=== PATIENT | female | born 1950 | race Caucasian/White ===

== ENCOUNTER 2017-11-09 06:03 | Emergency (ER) | payer MEDICARE, SELFPAY ==
[2017-11-09 06:13] VITALS: BP 153/80; PULSE 88; RESP 18; TEMP 36.6; O2SAT 96; BMI 37.8
--- NOTE | 2017-11-09 06:21 | XR_ITS ---
XR chest 2V HISTORY: ITS.REASON: SOA/cough ORDERING PHYSICIAN: Richard Morales MD PATIENT AGE: 67 years COMPARISON: None available FINDINGS: The cardiomediastinal silhouette and pulmonary vascularity are within normal limits. The lungs are clear without infiltrates, suspicious nodules, or pleural effusions. No acute bony abnormalities. IMPRESSION: Negative chest, no acute finding
[2017-11-09 06:41] LABS: Basophils # 0.1 K/mm3 (0-0.2); Basophils % 1.2 % (0.1-2.0); Eosinophils # 0.1 K/mm3 (0.0-0.4); Eosinophils % 1.7 % (0.1-12.0); Hemoglobin 13.8 g/dL (12.2-16.2); Lymphocytes # 1.2 K/mm3 (0.7-4.5); Lymphocytes % 26.6 K/mm3 (10-50); Mean Corpuscular HGB Conc 33.6 g/dL (31.8-35.4); Mean Corpuscular Hemoglobin 31.3 pg (27.0-31.2); Mean Corpuscular Volume 93.2 fl (81-99); Mean Platelet Volume 7.6 fl (7.4-10.4); Monocytes # 0.6 K/mm3 (0.1-1.0); Monocytes % 11.8 % (1.7-9.3); Neutrophils # 2.8 K/mm3 (1.8-7.8); Neutrophils % 58.8 % (37.0-80.0); Platelet Count 117 K/mm3 (142-424); Red Blood Count 4.39 M/mm3 (4.20-5.40); Red Cell Distribution Width 13.9 % (11.5-17.5); White Blood Count 4.7 K/mm3 (4.8-10.8)
[2017-11-09 07:04] LABS: Alanine Aminotransferase 55 U/L (12-78); Albumin Level 3.5 gm/dL (3.4-5.0); Albumin/Globulin Ratio 0.8 (1.1-1.8); Alkaline Phosphatase 112 U/L (46-116); Aspartate Amino Transferase 50 U/L (15-37); Bilirubin,Total 0.6 mg/dL (0.2-1.0); Blood Urea Nitrogen 12 mg/dL (7-18); Calcium 8.7 mg/dL (8.5-10.1); Carbon Dioxide 28 mmol/L (21.0-32.0); Chloride 104 mmol/L (98-107); Creatinine Clearance Estimated 84 mL/min (0-300); Creatinine,Serum 0.98 mg/dL (0.55-1.02); Estimated Glomerular Filt Rate 56 ml/min (>60); GFR (African American) 68 ML/MIN (>60); Globulin 4.3 gm/dl (1.3-3.2); Glucose 169 mg/dL (74-106); Sodium 140 mmol/L (136-145); Total Protein,Serum 7.8 gm/dL (6.4-8.2)
--- NOTE | 2017-11-09 07:34 | HMH.EDSOB ---
ED Disposition Clinical Impression: CAP (community acquired pneumonia) Qualifiers: Laterality: right Lung location: lower lobe of lung Qualified Code(s): J18.1 - Lobar pneumonia, unspecified organism Disposition: Home, Self-Care Condition on Discharge: Good Instructions: DI for Cough -- Adult Additional Instructions: fluids and see pcp for follow up Prescriptions: Azithromycin [Zithromax 250mg tab] 250 mg PO DIRECTED #6 tab Benzonatate [Tessalon Perle 100mg Cap] 100 mg PO TID #30 cap - Critical Care Critical Care Time: No Attestation: On 11/09/17, the high probability of a clinically significant, sudden or life threatening deterioration of the following system(s) required my full and direct attention, intervention and personal management. The time I documented below is in addition to time spent performing reported procedures but includes the following listed in this critical care notation. Medical Decision Making - Medical Records Medical records reviewed: Yes: I reviewed the patient's medical records. Vital Signs: 11/09/17 06:13 11/09/17 07:45 Temperature 97.9 F Temperature Source Oral Pulse Rate 87 Pulse Rate [Right Radial] 88 Respiratory Rate 18 Blood Pressure [Right Arm] 153/80 Blood Pressure Mean [Right Arm] 104 Blood Pressure Source [Right Arm] Automatic Cuff Blood Pressure Position [Right Arm] Sitting 02 Sat by Pulse Oximetry 96 Oxygen Delivery Method Room Air - Lab Data Lab results reviewed: Yes: I reviewed the patient's lab results. Lab Results 11/09/17 06:25: WBC 4.7 L, RBC 4.39, Hgb 13.8, Hct 41.0, MCV 93.2, MCH 31.3 H, MCHC 33.6, RDW 13.9, Plt Count 117 L, MPV 7.6, Neut % (Auto) 58.8, Lymph % (Auto) 26.6, Long % (Auto) 11.8 H, Eos % (Auto) 1.7, Baso % (Auto) 1.2, Neut # (Auto) 2.8, Lymph # (Auto) 1.2, Long # (Auto) 0.6, Eos # (Auto) 0.1, Baso # (Auto) 0.1 11/09/17 06:25: Sodium 140, Potassium 4.0, Chloride 104, Carbon Dioxide 28, Anion Gap 12.0, BUN 12, Creatinine 0.98, Estimated Creat Clear 84, Estimated GFR 56 L, Est GFR ( Amer) 68, Glucose 169 H, Calcium 8.7, Total Bilirubin 0.6, AST 50 H, ALT 55, Alkaline Phosphatase 112, Total Protein 7.8, Albumin 3.5, Globulin 4.3 H, Albumin/Globulin Ratio 0.8 L 11/09/17 06:25: Influenza Type A Ag Negative, Influenza Type B Ag Negative Result diagrams: 11/09/17 06:25 11/09/17 06:25 Orders (Tests/Meds): ED MEDICATIONS Generic Name Dose Route Start Last Admin Trade Name Freq PRN Reason Stop Dose Admin Albuterol Sulfate 2 puffs 11/09/17 07:39 11/09/17 07:44 Proventil-Hfa 90mcg/Puff Inhaler 12/09/17 07:38 2 puffs Q6HP PRN Administration Shortness Of Breath Discontinued Medications Generic Name Dose Route Start Last Admin Trade Name Freq PRN Reason Stop Dose Admin Albuterol Sulfate 2.5 mg 11/09/17 07:39 11/09/17 07:44 Albuterol 0.083% 2.5mg/3ml Neb IH 11/09/17 07:40 2.5 mg ONCE ONE Administration Miscellaneous 1 unit 11/09/17 07:39 11/09/17 07:44 Aerochamber/Optihaler 11/09/17 07:40 1 unit ONCE ONE Administration ORDERS Category Date Time Status Chest XR 2 view (NOT portable) [XR chest 2V] Stat Exams 11/09/17 06:21 Taken - Radiology Data #1 Image(s): Chest Image Reviewed: Yes I reviewed the patient's radiology image Preliminary Findings: Abnormal - Ricardo Inquiry Pt receiving controlled substance: No Resp/SOB HPI - General Chief Complaint: Nausea/Vomiting/Diarrhea Stated Complaint: Congestion,Aching,Headache Time Seen by Provider: 11/09/17 07:34 Mode of Arrival: Ambulatory Source of Information: Patient, Medical Record Limitations: No Limitations Description of Symptoms (Recalled from ER Triage Doc. by RN): Pt. reports she started running a fever yesterday and it progressed to headache, nausea, and diarrhea - History of Present Illness over the last 2 days with prod cough and does not feel well MD Complaint: shortness of breath,
--- NOTE | 2017-11-09 07:37 | ED_ITS ---
ED Disposition Clinical Impression: CAP (community acquired pneumonia) Qualifiers: Laterality: right Lung location: lower lobe of lung Qualified Code(s): J18.1 - Lobar pneumonia, unspecified organism Disposition: Home, Self-Care Condition on Discharge: Good Instructions: DI for Cough -- Adult Additional Instructions: fluids and see pcp for follow up Prescriptions: Azithromycin [Zithromax 250mg tab] 250 mg PO DIRECTED #6 tab Benzonatate [Tessalon Perle 100mg Cap] 100 mg PO TID #30 cap - Critical Care Critical Care Time: No Attestation: On 11/09/17, the high probability of a clinically significant, sudden or life threatening deterioration of the following system(s) required my full and direct attention, intervention and personal management. The time I documented below is in addition to time spent performing reported procedures but includes the following listed in this critical care notation. Medical Decision Making - Medical Records Medical records reviewed: Yes: I reviewed the patient's medical records. Vital Signs: 11/09/17 06:13 11/09/17 07:45 Temperature 97.9 F Temperature Source Oral Pulse Rate 87 Pulse Rate [Right Radial] 88 Respiratory Rate 18 Blood Pressure [Right Arm] 153/80 Blood Pressure Mean [Right Arm] 104 Blood Pressure Source [Right Arm] Automatic Cuff Blood Pressure Position [Right Arm] Sitting 02 Sat by Pulse Oximetry 96 Oxygen Delivery Method Room Air - Lab Data Lab results reviewed: Yes: I reviewed the patient's lab results. Lab Results 11/09/17 06:25: WBC 4.7 L, RBC 4.39, Hgb 13.8, Hct 41.0, MCV 93.2, MCH 31.3 H, MCHC 33.6, RDW 13.9, Plt Count 117 L, MPV 7.6, Neut % (Auto) 58.8, Lymph % (Auto ) 26.6, [place] % (Auto) 11.8 H, Eos % (Auto) 1.7, Baso % (Auto) 1.2, Neut # (Auto ) 2.8, Lymph # (Auto) 1.2, [place] # (Auto) 0.6, Eos # (Auto) 0.1, Baso # (Auto) 0.1 11/09/17 06:25: Sodium 140, Potassium 4.0, Chloride 104, Carbon Dioxide 28, Anion Gap 12.0, BUN 12, Creatinine 0.98, Estimated Creat Clear 84, Estimated GFR 56 L, Est GFR ( Amer) 68, Glucose 169 H, Calcium 8.7, Total Bilirubin 0.6, AST 50 H, ALT 55, Alkaline Phosphatase 112, Total Protein 7.8, Albumin 3.5, Globulin 4.3 H, Albumin/Globulin Ratio 0.8 L 11/09/17 06:25: Influenza Type A Ag Negative, Influenza Type B Ag Negative Result diagrams: 11/09/17 06:25 11/09/17 06:25 Orders (Tests/Meds): ED MEDICATIONS Generic Name Dose Route Start Last Admin Trade Name Freq PRN Reason Stop Dose Admin Albuterol Sulfate 2 puffs 11/09/17 07:39 11/09/17 07:44 Proventil-Hfa 90mcg/Puff Inhaler 12/09/17 07:38 2 puffs Q6HP PRN Administration Shortness Of Breath Discontinued Medications Generic Name Dose Route Start Last Admin Trade Name Freq PRN Reason Stop Dose Admin Albuterol Sulfate 2.5 mg 11/09/17 07:39 11/09/17 07:44 Albuterol 0.083% 2.5mg/3ml Neb IH 11/09/17 07:40 2.5 mg ONCE ONE Administration Miscellaneous 1 unit 11/09/17 07:39 11/09/17 07:44 Aerochamber/Optihaler 11/09/17 07:40 1 unit ONCE ONE Administration ORDERS Category Date Time Status Chest XR 2 view (NOT portable) [XR chest 2V] Stat Exams 11/09/17 06:21 Taken - Radiology Data #1 Image(s): Chest Image Reviewed: Yes I reviewed the patient's
[2017-11-09 07:45] VITALS: PULSE 84; PULSE 87
[2017-11-09 08:18] VITALS: BP 125/75; PULSE 85; RESP 18; TEMP 36.7; O2SAT 98
== END 2017-11-09 08:17 | disposition home or self-care (01) ==
PROVIDERS: Emergency Provider Emergency Medicine
DX: J18.1 Lobar pneumonia, unspecified organism (principal); F17.210 Nicotine dependence, cigarettes, uncomplicated
CPT/HCPCS: 71046; 80053; 85025; 87275; 87276; 96365; 96374; 99282

== ENCOUNTER 2019-08-18 11:15 | Inpatient (IN) ==
[2019-08-18 12:05] LABS: Basophils # 0.1 K/mm3 (0-0.2); Basophils % 0.3 % (0.1-2.0); Eosinophils # 0.2 K/mm3 (0.0-0.4); Hematocrit 44.9 % (37.0-47.0); Hemoglobin 15.5 g/dL (12.2-16.2); Lymphocytes # 0.6 K/mm3 (0.7-4.5); Lymphocytes % 3.4 % (10-50); Mean Corpuscular HGB Conc 34.5 g/dL (31.8-35.4); Mean Corpuscular Volume 94.4 fl (81-99); Mean Platelet Volume 7.8 fl (7.4-10.4); Monocytes # 0.7 K/mm3 (0.1-1.0); Monocytes % 3.9 % (1.7-9.3); Neutrophils # 17.4 K/mm3 (1.8-7.8); Neutrophils % 91.5 % (37.0-80.0); Platelet Count 160 K/mm3 (142-424); Red Blood Count 4.75 M/mm3 (4.20-5.40); Red Cell Distribution Width 14.4 % (11.5-17.5)
[2019-08-18 12:24] LABS: Albumin Level 3.5 gm/dL (3.4-5.0); Albumin/Globulin Ratio 0.8 (1.1-1.8); Anion Gap 10.1 mEq/L (5-15); Calcium 8.9 mg/dL (8.5-10.1); Globulin 4.4 gm/dl (1.3-3.2); Total Protein,Serum 7.9 gm/dL (6.4-8.2)
[2019-08-18 12:25] LABS: Lymphocytes % 3 % (10-50); Monocytes % 8 % (2-9); Neutrophils % 89 % (42-76); RBC Morphology Normal; Total Cells Counted 100
--- NOTE | 2019-08-18 12:57 | Emergency Department Note ---
ED Disposition Clinical Impression: Flank pain, acute, Obesity (BMI 30-39.9) Hematuria Qualifiers: Hematuria type: unspecified type Qualified Code(s): R31.9 - Hematuria, unspecified Leukocytosis Qualifiers: Leukocytosis type: unspecified Qualified Code(s): D72.829 - Elevated white blood cell count, unspecified Diabetes Qualifiers: Diabetes mellitus type: type 2 Diabetes mellitus fdc insulin use: unspecified fdc insulin use status Diabetes mellitus complication status: with other specified complication Qualified Code(s): E11.69 - Type 2 diabetes m ellitus with other specified complication Disposition: Admitted as Observation Condition on Discharge: Good Referrals: Stefany Davila [Primary Care Provider] - - Critical Care Critical Care Time: No Attestation: On 08/18/19, the high probability of a clinically significant, sudden or life threatening deterioration of the following system(s) required my full and direct attention, intervention and personal management. The time I documented below is in addition to time spent performing reported procedures but includes the following listed in this critical care notation. Medical Decision Making - Medical Records Medical records reviewed: Yes: I reviewed the patient's medical records. - Ricardo Inquiry Pt receiving controlled substance: No Vital Signs: 08/18/19 11:26 08/18/19 12:16 08/18/19 13:00 Temperature 97.6 F Temperature Source Oral Pulse Rate [Right] 78 85 85 Respiratory Rate 20 19 15 Blood Pressure [Right Arm] 158/101 H 149/89 H 138/75 Blood Pressure Mean [Right Arm] 120 109 96 02 Sat by Pulse Oximetry 96 97 98 Oxygen Delivery Method Room Air 08/18/19 14:00 Temperature Temperature Source Pulse Rate [Right] 85 Respiratory Rate 15 Blood Pressure [Right Arm] 138/45 L Blood Pressure Mean [Right Arm] 76 02 Sat by Pulse Oximetry 98 Oxygen Delivery Method Room Air - Lab Data Lab results reviewed: Yes: I reviewed the patient's lab results. Lab Results 08/18/19 11:56: WBC 19.0 H, RBC 4.75, Hgb 15.5, Hct 44.9, MCV 94.4, MCH 32.5 H, MCHC 34.5, RDW 14.4, Plt Count 160, MPV 7.8, Neut % (Auto) 91.5 H, Lymph % (Auto) 3.4 L, [place] % (Auto) 3.9, Eos % (Auto) 1.0, Baso % (Auto) 0.3, Neut # (Auto) 17.4 H, Lymph # (Auto) 0.6 L, [place] # (Auto) 0.7, Eos # (Auto) 0.2, Baso # (Auto) 0.1, Total Counted 100, Neutrophils % (Manual) 89 H, Lymphocytes % (Manual) 3 L, Monocytes % (Manual) 8, Platelet Estimate Normal, RBC Morphology Normal 08/18/19 11:56: Sodium 135 L, Potassium 4.1, Chloride 102, Carbon Dioxide 27, Anion Gap 10.1, BUN 12, Creatinine 1.09 H, Estimated Creat Clear 74, Estimated GFR 49 L, Est GFR ( Amer) 60, Glucose 248 H, Calcium 8.9, Total Bilirubin 1.0, AST 33, ALT 44, Alkaline Phosphatase 167 H, Total Protein 7.9, Albumin 3.5, Globulin 4.4 H, Albumin/Globulin Ratio 0.8 L, Amylase 33, Lipase 118 08/18/19 12:55: Urine Color Yellow, Urine Appearance Clear, Urine pH 6.5, Ur Specific [place] 1.025, Urine Protein 2+, Urine Glucose (UA) 3+, Urine Ketones Negative, Urine Blood 3+, Urine Nitrate Negative, Urine Bilirubin Negative, Urine Urobilinogen 1.0, Ur Leukocyte Esterase Negative, Urine RBC 20-50, Urine WBC 3-5, Ur Squamous Epith Cells Occasional, Amorphous Sediment 1+, Urine Bacteria None 08/18/19 13:00: Lactate 2.2 H Result diagrams: 08/18/19 11:56 08/18/19 11:56 Orders (Tests/Meds): ED MEDICATIONS Generic Name Dose Route Start Last Admin Trade Name Freq PRN Reason Stop Dose Admin Ertapenem 1 gm/ Sodium 50 mls @ 100 mls/hr 08/18/19 14:15 08/18/19 14:17 Chloride IV 09/01/19 14:14 100 mls/hr Q24H FILIPPO Administration Protocol Discontinued Medications Generic Name Dose Route Start Last Admin Trade Name Freq PRN Reason Stop Dose Admin Sodium Chloride 1,000 mls @ 999 mls/hr 08/18/19 12:00 08/18/19 11:57 Sod Chlor 0.9% 1000ml Bag IV 08/18/19 13:00 999 mls/hr .Q1H1M FILIPPO Administration Ketorolac Tromethamine 30 mg 08/18/19 11:51 08/18/19 11:57 Toradol 30mg/Ml Vial IV 08/18/19 11:52 30 mg ONCE ONE Administration Morphine Sulfate 2 mg 08/18/19 14:23 08/18/19 14:25 Morphine 4mg/Ml Syringe IV 08/18/19 14:24 2 mg ONCE ONE Administration Ondansetron HCl 4 mg 08/18/19 11:51 08/18/19 11:57 Zofran 4mg/2ml Vial IV 08/18/19 11:52 4 mg ONCE ONE Administration Ondansetron HCl 4 mg 08/18/19 14:23 08/18/19 14:24 Zofran 4mg/2ml Vial IV 08/18/19 14:24 4 mg ONCE ONE Administration ORDERS Category Date Time Status Diarrhea 23 Panel, PCR Stat Lab 08/18/19 11:43 Ordered Blood Culture Stat Micro 08/18/19 13:00 Received - CT Data CT Scan: Abdomen, Pelvis Time Received: 14:[address] Reviewed: Yes: I have viewed the radiologist's interpretation Preliminary Findings: Abnormal (see report ) - Physician Consults Physician Consulted: kavin Reason -: Admission Nausea/Vomiting/Diarrhea HPI - General Chief complaint: Nausea/Vomiting/Diarrhea Stated complaint: lt side pain, vomiting Time Seen by Provider: 08/18/19 12:55 Mode of Arrival: Wheelchair Source of Information: Patient, Relative, Medical Record Limitations: No Limitations Description of Symptoms (Recalled from ER Triage Doc. by RN): Patient complains of nausea, vomiting, diarrhea and left lower back pain since bedtime last night. - History of Present Illness HPI Narrative: wf with acute lt flank pain with nausea over the last day - no hx of kidney st one and no hx of diverticulitis and no rash and no fever - has vomiting MD complaint: nausea, vomiting, abdominal pain Onset (ago): day(s) Associated Abdominal Pain: Yes Location of pain: LLQ, flank Severity: moderate Associated symptoms: denies other symptoms - Related Data Home Medications Medication Instructions Recorded Confirmed Escitalopram Oxalate [Lexapro] 10 mg PO DAILY 11/09/17 08/18/19 Lisinopril [Lisinopril 10mg Tab] 1 tab PO DAILY 11/09/17 08/18/19 Metformin HCl 1 tab PO DAILY 11/09/17 08/18/19 Allergies Allergy/AdvReac Type Severity Reaction Status Date / Time No Known Allergies Allergy Verified 08/18/19 11:45 [facility] History - Hepatitis A Screen Drug use history?: No High risk sexual behaviors?: No History of sexually transmitted infection?: No Currently employed?: No Childcare worker?: No Do you have indoor plumbing?: Yes Do you have electricity?: Yes Attestation statement:: This patient has been screened for Hepatitis A risk factors. I have reviewed the patient's past medical history: Yes Medical History: Reports:: Diabetes Mellitus Type 2 Other Medical History: Reports: Thyroid Disease Other Surgeries: Yes: Other (thyroid and hysterectomy) - Social History Smoking Status: Current every day smoker Tobacco Type: cigarettes # Packs/Day (cigarettes): 1 Alcohol Intake: never Occupational Status: disabled ROS Obtained: Yes All systems reviewed & no additional complaints - Constitutional Constitutional: Denies fever(s) - Eyes Eyes: Denies change in vision - ENT Ears, Nose, Mouth, and Throat: Denies sore throat - Cardiovascular Cardiovascular: Denies chest pain - Respiratory Respiratory: No cough - Gastrointestinal Gastrointestingal: Reports: abdominal pain, diarrhea, nausea, vomiting. Denies: as per HPI, bright red blood in stools, black, tarry stools - Genitourinary Female Genitourinary: Denies hematuria - Musculoskeletal Musculoskeletal: Denies joint pain - Integumentary/Breasts Skin/Breast: Denies rash - Neurologic Neurologic: Denies focal weakness, Denies seizure-like activity Physical Exam - General General appearance: alert - Head Head exam: normocephalic - Eye Eye exam: Present: PERRL, EOMI - ENT ENT exam: Present: mucous membranes moist - Neck Neck exam: Absent: trachea midline - Respiratory Respiratory exam: Present: normal lung sounds bilaterally. Absent: respiratory distress - Cardiovascular Cardiovascular exam: Present: regular rate, systolic murmur, +S4 - Abdominal Exam Abdominal exam: Present: soft, tenderness Abdominal tenderness: Present: LLQ, moderate - Extremities Exam Extremities exam: Present: full ROM. Absent: calf tenderness - Neurological Exam Neurological exam: Present: alert, oriented X3, CN II-XII intact - Psychiatric Psychiatric exam: Present: normal affect - Skin Skin exam: Absent: rash
[2019-08-18 12:59] LABS: Microscopic, Urine URINE MICROSCOPIC (MICROSCOPIC)
[2019-08-18 13:02] LABS: Appearance,Urine CLEAR (Clear); Bilirubin,Urine Negative (Negative); Blood, Urine 3+ (Negative); Color,Urine YELLOW (Yellow); Glucose,Urine (UA) 3+ (Negative); Ketones,Urine Negative (Negative); Leukocyte Esterase,Urine Negative (Negative); PH,Urine 6.5 (5.0-8.5); Protein,Urine 2+ (Negative); Specific Gravity, Urine 1.025 (1.005-1.030)
[2019-08-18 13:11] LABS: Amorphous Sediment,Urine 1+ /lpf; RBC,Urine 20-50 #/hpf (0-3); Squamous Epithelial Cell,Urine Occasional #/hpf (0-5)
--- NOTE | 2019-08-18 17:26 | History & Physical Report ---
*Admission Date: 08/18/19 *Chief complaint: LLQ abdominal pain, diarrhea *History of present illness: Ms. Quiroz is a 69-year-old patient of Dr. Stefany Davila in [place] who began having left lower back and left lower quadrant pain last night. She also had vomiting and diarrhea. This continued throughout the night and her vomiting and diarrhea subsided around 11 AM today. The pain has not subsided. She states she presented to the emergency room for further evaluation and was found to have a left-sided kidney stone. Her white blood cell count was elevated at 19 and her lactic acid was elevated. She was therefore admitted for IV fluids, antibiotics, and a repeat CT scan with contrast. Dr. Main was also consulted for the kidney stone and will see the patient tomorrow. [facility] History I have reviewed the patient's past medical history: Yes Medical History: Reports:: Anxiety, Depression, Diabetes Mellitus Type 2, Hypertension *Have you ever received a pneumonia vaccine?: No *Have you received a flu vaccine this season?: No Other Medical History: Reports: Hypothyroidism, Thyroid Disease Laterality Cases: Bilateral: Carpal Tunnel Release Other Surgeries: Yes: Cholecystectomy, Hysterectomy-Partial, Thyroidectomy, Other (right rotator cuff repair) - *Social History Smoking Status: Current every day smoker Tobacco Type: cigarettes # Packs/Day (cigarettes): 1 Alcohol Intake: never *Occupational Status:: disabled *Travel in the last 8 weeks: None Family Hx:: Cancer, Diabetes, Hypertension, Stroke Review of Systems - Constitutional Reports chills, Reports fever(s), Reports weakness - Eyes Denies blurry vision, Denies double vision - ENT Reports nasal congestion, Denies sore throat - *Cardiovascular Denies chest pain, Denies shortness of breath - *Respiratory Denies chest congestion, Denies cough - *Gastrointestinal Reports abdominal pain (LLQ), Reports loose stools, Reports nausea, Reports vomiting, Denies vomiting blood, Denies bright, red blood in stools - *Genitourinary Denies difficulty urinating, Denies painful urination - *Musculoskeletal Reports joint pain (left flank pain) - *Neurologic Reports headache(s), Reports weakness, Denies localized weakness, Denies seizure-like activity, Denies dizziness Meds Home Medications Medication Instructions Recorded Confirmed Type Escitalopram Oxalate [Lexapro] 10 mg PO DAILY 11/09/17 08/18/19 History Lisinopril [Lisinopril 10mg Tab] 1 tab PO DAILY 11/09/17 08/18/19 History Metformin HCl 1 tab PO DAILY 11/09/17 08/18/19 History Allergies Allergy/AdvReac Type Severity Reaction Status Date / Time No Known Allergies Allergy Verified 08/18/19 11:45 Exam Vital signs and Labs for Last 24 Hours: Temp Pulse Resp BP Pulse Ox 98.6 F 84 17 126/85 98 08/18/19 16:36 08/18/19 16:36 08/18/19 16:36 08/18/19 16:36 08/18/19 14:50 Laboratory Results - last 24 hr 08/18/19 11:56: WBC 19.0 H, RBC 4.75, Hgb 15.5, Hct 44.9, MCV 94.4, MCH 32.5 H, MCHC 34.5, RDW 14.4, Plt Count 160, MPV 7.8, Neut % (Auto) 91.5 H, Lymph % (Auto) 3.4 L, [place] % (Auto) 3.9, Eos % (Auto) 1.0, Baso % (Auto) 0.3, Neut # (Auto) 17.4 H, Lymph # (Auto) 0.6 L, [place] # (Auto) 0.7, Eos # (Auto) 0.2, Baso # (Auto) 0.1, Total Counted 100, Neutrophils % (Manual) 89 H, Lymphocytes % (Manual) 3 L, Monocytes % (Manual) 8, Platelet Estimate Normal, RBC Morphology Normal 08/18/19 11:56: Sodium 135 L, Potassium 4.1, Chloride 102, Carbon Dioxide 27, Anion Gap 10.1, BUN 12, Creatinine 1.09 H, Estimated Creat Clear 74, Estimated GFR 49 L, Est GFR ( Amer) 60, Glucose 248 H, Calcium 8.9, Total Bilirubin 1.0, AST 33, ALT 44, Alkaline Phosphatase 167 H, Total Protein 7.9, Albumin 3.5, Globulin 4.4 H, Albumin/Globulin Ratio 0.8 L, Amylase 33, Lipase 118 08/18/19 12:55: Urine Color Yellow, Urine Appearance Clear, Urine pH 6.5, Ur Specific [place] 1.025, Urine Protein 2+, Urine Glucose (UA) 3+, Urine Ketones Negative, Urine Blood 3+, Urine Nitrate Negative, Urine Bilirubin Negative, Urine Urobilinogen 1.0, Ur Leukocyte Esterase Negative, Urine RBC 20-50, Urine WBC 3-5, Ur Squamous Epith Cells Occasional, Amorphous Sediment 1+, Urine Bacteria None 08/18/19 13:00: Lactate 2.2 H I & O for Last 24 hours: Intake & Output 08/16/19 08/17/19 08/18/19 08/19/19 11:59 11:59 11:59 11:59 Intake Total 1999 Balance 1999 Weight 218 lb - Constitutional no acute distress - *Routine HEENT Exam Head: Present: normocephalic Eye: Present: EOMI, PERRL ENT: Present: mucous membranes dry - *Routine Neck Exam Present: supple. Absent: lymphadenopathy - *Routine Respiratory Exam Present: CTA bilaterally - *Routine Cardiovascular Exam Present: RRR - *Routine Abdominal Exam Present: soft, normoactive bowel sounds, tenderness (LLQ) - *Routine Extremities Exam Absent: cyanosis, clubbing, edema - *Routine Skin Exam Present: warm. Absent: rash - *Routine Neurological Exam Present: alert, oriented X3 H&P: Result - Impressions CT abd 1. There is moderate stranding of the left perinephric renal fat with mild left hydronephrosis and proximal hydroureter along with some stranding of the fat along the pancreatic tail. A soft tissue density is present in the left pelvic region the adjacent to the left ureter. This may represent the left ovary. There could also be a small stone at this area at [address] abdomen and pelvis with IV contrast with delayed imaging to better delineate the path of the left ureter and possible etiology of obstruction. Pancreatitis is also a consideration. 2. Multiple nodular opacities are present in the left aspect of the retroperitoneum at the renal hilar area and may be due to combination of varices and small lymph nodes which would also be better evaluated with IV contrast. 3. Mild irregularity of the surface of the liver suggesting cirrhosis. 4. Left adrenal adenoma Assessment and Plan (1) Flank pain, acute Current visit: Yes Status: Acute Category: Medical Code(s): R10.9 - Unspecified abdominal pain (2) Leukocytosis Current visit: Yes Status: Acute Qualifiers: Leukocytosis type: unspecified Qualified Code(s): D72.829 - Elevated white blood cell count, unspecified Category: Medical Code(s): D72.829 - Elevated white blood cell count, unspecified (3) Abdominal pain, left lower quadrant Current visit: Yes Status: Acute Category: Medical Code(s): R10.32 - Left lower quadrant pain (4) Diabetes Current visit: Yes Status: Chronic Qualifiers: Diabetes mellitus type: type 2 Diabetes mellitus penitentiary insulin use: unspecified oil heaterman insulin use status Diabetes mellitus complication status: with other specified complication Qualified Code(s): E11.69 - Type 2 diabetes mellitus with other specified complication Category: Medical Code(s): E11.9 - Type 2 diabetes mellitus without complications (5) Hypertension Current visit: Yes Status: Chronic Category: Medical Code(s): I10 - Essential (primary) hypertension - Assessment and plan all Dx Assessment and Plan for all problems:: Patient has been admitted and started on IV fluids, IV antibiotics, and pain control. Dr. Main has been consulted. Patient just returned from her CT of the abdomen and pelvis with IV contrast. Awaiting results.
[2019-08-19 07:11] LABS: Basophils # 0.1 K/mm3 (0-0.2); Basophils % 0.4 % (0.1-2.0); Eosinophils # 0.1 K/mm3 (0.0-0.4); Eosinophils % 0.3 % (0.1-12.0); Hematocrit 36.7 % (37.0-47.0); Lymphocytes # 0.8 K/mm3 (0.7-4.5); Lymphocytes % 4.8 % (10-50); Mean Corpuscular HGB Conc 33.6 g/dL (31.8-35.4); Mean Corpuscular Volume 96.7 fl (81-99); Mean Platelet Volume 8.9 fl (7.4-10.4); Monocytes # 0.7 K/mm3 (0.1-1.0); Neutrophils # 14.9 K/mm3 (1.8-7.8); Neutrophils % 90.4 % (37.0-80.0); Platelet Count 115 K/mm3 (142-424); Red Cell Distribution Width 14.4 % (11.5-17.5); White Blood Count 16.5 K/mm3 (4.8-10.8)
[2019-08-19 07:23] LABS: Anion Gap 6.5 mEq/L (5-15); Calcium 8.2 mg/dL (8.5-10.1); Hemoglobin 12.4 g/dL (12.2-16.2)
--- NOTE | 2019-08-19 07:40 | Pharmacy Consult Notes ---
[facility] Pharmacy VTE Monitoring - Patient Demographics Admission date: 08/18/19 Report Date: 08/19/19 Time: 07:40 Allergies/Adverse Reactions: Patient Allergies No Known Allergies Allergy (Verified 08/18/19 11:45) Height: 1.63 m Weight: 104.468 kg Patient Problems: Current Active Problems History of thyroidectomy (Acute) Strabismus (Acute) Flank pain, acute (Acute) Hematuria (Acute) Obesity (BMI 30-39.9) (Acute) Leukocytosis (Acute) Diabetes (Chronic) Abdominal pain, left lower quadrant (Acute) Hypertension (Chronic) - VTE Risk Labs: VTE Related Lab Results Hgb 12.4 g/dL (12.2-16.2) D 08/19/19 06:54 Hct 36.7 % (37.0-47.0) L 08/19/19 06:54 Plt Count 115 K/mm3 (142-424) L D 08/19/19 06:54 BUN 15 mg/dL (7-18) 08/19/19 06:54 Creatinine 1.38 mg/dL (0.55-1.02) H D 08/19/19 06:54 Estimated Creat Clear 62 mL/min (50-200) 08/19/19 06:54 - Prophylaxis VTE Prophylaxis Ordered?: Yes Types of VTE Prophylaxis: TEDS Knee High Location of Applied Device: Bilateral Lower Extremeties - VTE Diagnosis Confirmed Treatment or plan recommended: Continue Current Treatment
[2019-08-19 08:27] LABS: Lymphocytes % 7 % (10-50); Monocytes % 1 % (2-9); Neutrophils % 89 % (42-76); RBC Morphology Normal; Total Cells Counted 100
--- NOTE | 2019-08-19 08:31 | Progress Note ---
Internal Medicine - PN: Subj *Date: 08/19/19 *Time: 08:29 Interval history: Patient states she is still having left flank and left-sided abdominal pain. She was able to rest last night after being given some pain medication. She has had only small sips of liquid this morning. She has had no further vomiting or diarrhea. Dr. Main has been consulted to see the patient today. Exam Vital signs and Labs for Last 24 Hours: Temp Pulse Resp BP Pulse Ox 98.9 F 94 H 18 106/60 L 94 L 08/19/19 04:00 08/19/19 04:00 08/19/19 04:00 08/19/19 04:00 08/19/19 04:00 Laboratory Results - last 24 hr 08/18/19 11:55: TSH 2.10 08/18/19 11:56: WBC 19.0 H, RBC 4.75, Hgb 15.5, Hct 44.9, MCV 94.4, MCH 32.5 H, MCHC 34.5, RDW 14.4, Plt Count 160, MPV 7.8, Neut % (Auto) 91.5 H, Lymph % (Auto) 3.4 L, [place] % (Auto) 3.9, Eos % (Auto) 1.0, Baso % (Auto) 0.3, Neut # (Auto) 17.4 H, Lymph # (Auto) 0.6 L, [place] # (Auto) 0.7, Eos # (Auto) 0.2, Baso # (Auto) 0.1, Total Counted 100, Neutrophils % (Manual) 89 H, Lymphocytes % (Manual) 3 L, Monocytes % (Manual) 8, Platelet Estimate Normal, RBC Morphology Normal 08/18/19 11:56: Sodium 135 L, Potassium 4.1, Chloride 102, Carbon Dioxide 27, Anion Gap 10.1, BUN 12, Creatinine 1.09 H, Estimated Creat Clear 74, Estimated GFR 49 L, Est GFR ( Amer) 60, Glucose 248 H, Calcium 8.9, Total Bilirubin 1.0, AST 33, ALT 44, Alkaline Phosphatase 167 H, Total Protein 7.9, Albumin 3.5, Globulin 4.4 H, Albumin/Globulin Ratio 0.8 L, Amylase 33, Lipase 118 08/18/19 12:55: Urine Color Yellow, Urine Appearance Clear, Urine pH 6.5, Ur Specific [place] 1.025, Urine Protein 2+, Urine Glucose (UA) 3+, Urine Ketones Negative, Urine Blood 3+, Urine Nitrate Negative, Urine Bilirubin Negative, Urine Urobilinogen 1.0, Ur Leukocyte Esterase Negative, Urine RBC 20-50, Urine WBC 3-5, Ur Squamous Epith Cells Occasional, Amorphous Sediment 1+, Urine Bacteria None 08/18/19 13:00: Lactate 2.2 H 08/18/19 17:51: Lactate 1.4 08/18/19 20:46: POC Glucose 143 H 08/19/19 05:59: POC Glucose 175 H 08/19/19 06:54: WBC 16.5 H, RBC 3.80 L, Hgb 12.4 D, Hct 36.7 L, MCV 96.7, MCH 32.5 H, MCHC 33.6, RDW 14.4, Plt Count 115 L D, MPV 8.9, Neut % (Auto) 90.4 H, Lymph % (Auto) 4.8 L, [place] % (Auto) 4.0, Eos % (Auto) 0.3, Baso % (Auto) 0.4, Neut # (Auto) 14.9 H, Lymph # (Auto) 0.8, [place] # (Auto) 0.7, Eos # (Auto) 0.1, Baso # (Auto) 0.1, Total Counted 100, Neutrophils % (Manual) 89 H, Band Neutrophils % 2.0, Lymphocytes % (Manual) 7 L, Monocytes % (Manual) 1 L, Metamyelocytes % 1.0, Platelet Estimate Slight decrease, RBC Morphology Normal 08/19/19 06:54: Sodium 136, Potassium 4.5, Chloride 106, Carbon Dioxide 28, Anion Gap 6.5, BUN 15, Creatinine 1.38 H D, Estimated Creat Clear 62, Estimated GFR 38 L, Est GFR ( Amer) 46 L D, Glucose 169 H D, Calcium 8.2 L, Magnesium 1.6 I & O for Last 24 hours: Intake & Output 08/16/19 08/17/19 08/18/19 08/19/19 11:59 11:59 11:59 11:59 Intake Total 4117 / 4117 Output Total 600 / 600 Balance 3517 / 3517 Weight 218 lb 230 lb 5 oz Radiology Reports for the Last 24 Hours: Abdominal CT 1. Left hydronephrosis with filling defects in the left renal pelvis and calices. Filling defect at the proximal left ureter causing mild UPJ obstruction. Tumor, blood clots, or infection is a consideration. There is moderate stranding of the left perinephric renal fat and periureteral fat consistent with underlying inflammatory/infectious change.. No ureteral calculi are evident 2. There is mild edema of the tail the pancreas with stranding of the peripancreatic fat. This could be in response to the inflammatory changes in the adjacent left kidney or could be due to pancreatitis. 3. Cirrhosis with retroperitoneal varices - Constitutional no acute distress - *Routine Respiratory Exam Present: CTA bilaterally - *Routine Cardiovascular Exam Present: RRR - *Routine Abdominal Exam Present: soft, normoactive bowel sounds, tenderness (left upper and lower quadrants) - *Routine Extremities Exam Absent: cyanosis, clubbing, edema - Routine Back/Spine/Pelvis Exam Back/Spine: Present: CVA tenderness (left) - *Routine Skin Exam Present: warm. Absent: rash - *Routine Neurological Exam Present: alert, oriented X3 Assessment and Plan (1) Flank pain, acute Current visit: Yes Status: Acute Category: Medical Code(s): R10.9 - Unspecified abdominal pain (2) Leukocytosis Current visit: Yes Status: Acute Qualifiers: Leukocytosis type: unspecified Qualified Code(s): D72.829 - Elevated white blood cell count, unspecified Category: Medical Code(s): D72.829 - Elevated white blood cell count, unspecified (3) Abdominal pain, left lower quadrant Current visit: Yes Status: Acute Category: Medical Code(s): R10.32 - Left lower quadrant pain (4) Diabetes Current visit: Yes Status: Chronic Qualifiers: Diabetes mellitus type: type 2 Diabetes mellitus superintendent container terminal insulin use: unspecified superintendent container terminal insulin use status Diabetes mellitus complication status: with other specified complication Qualified Code(s): E11.69 - Type 2 diabetes mellitus with other specified complication Category: Medical Code(s): E11.9 - Type 2 diabetes mellitus without complications (5) Hypertension Current visit: Yes Status: Chronic Category: Medical Code(s): I10 - Essential (primary) hypertension (6) Hydronephrosis, left Current visit: Yes Status: Acute Category: Medical Code(s): N13.30 - Unspecified hydronephrosis (7) Cirrhosis Current visit: Yes Status: Acute Category: Medical Code(s): K74.60 - Unspecified cirrhosis of liver - Assessment and plan all Dx Assessment and Plan for all problems:: We will continue antibiotics and pain control. Dr. Main to see the patient today.
--- NOTE | 2019-08-19 13:13 | Consult Report ---
*Admission Date: 08/18/19 *Reason for consult:: Lower quadrant pain and abnormal CT scan *History of present illness: Patient is a 69-year-old white female admitted yesterday with left lower quadrant pain. She denies any previous history of such. She also has some associated vomiting and diarrhea. CT scan had shown possible kidney stone and a CT with contrast was performed to assess further. Calcifications were noted to be outside the course of the ureter on the CT with contrast. This was noted to have some mild hydronephrosis and thought to be due to a partial UPJ obstruction. The ureter appeared normal. Her pain has improved over the last 24 hours. Her lactate was elevated at 2.2 and her white count is 19,000. Her urine culture is pending. Her urine showed 20-50 red blood cells but no ba cteria. [facility] History Medical History: Reports:: Anxiety, Depression, Diabetes Mellitus Type 2, Hypertension *Have you ever received a pneumonia vaccine?: No *Have you received a flu vaccine this season?: No Other Medical History: Reports: Hypothyroidism, Thyroid Disease Laterality Cases: Bilateral: Carpal Tunnel Release Other Surgeries: Yes: Cholecystectomy, Hysterectomy-Partial, Thyroidectomy, Other (right rotator cuff repair) - *Social History Smoking Status: Current every day smoker Tobacco Type: cigarettes # Packs/Day (cigarettes): 1 Alcohol Intake: never *Occupational Status:: disabled *Travel in the last 8 weeks: None - Psychiatric History Pschychiatric History:: Reports:: Anxiety, Depression Family Hx:: Cancer, Diabetes, Hypertension, Stroke Review of Systems - *Neurologic Reports headache(s), Reports weakness, Denies localized weakness, Denies seizure-like activity, Denies dizziness Meds Home Medications Medication Instructions Recorded Confirmed Type Escitalopram Oxalate [Lexapro] 10 mg PO DAILY 11/09/17 08/18/19 History Lisinopril [Lisinopril 10mg Tab] 10 mg PO DAILY 11/09/17 08/18/19 History Metformin HCl 500 mg PO 1700 08/18/19 08/19/19 History Naproxen 500 mg PO BIDP PRN 08/18/19 08/19/19 History Propranolol HCl 10 mg PO DAILYP PRN 08/18/19 08/18/19 History Venlafaxine HCl [Effexor Xr] 150 mg PO DAILY 08/18/19 08/19/19 History Metformin HCl [Metformin 1000mg 1,000 mg PO DAILY 08/19/19 08/19/19 History Tablets] Allergies Allergy/AdvReac Type Severity Reaction Status Date / Time No Known Allergies Allergy Verified 08/18/19 11:45 Exam Vital signs and Labs for Last 24 Hours: Temp Pulse Resp BP Pulse Ox 97.9 F 84 16 129/67 93 L 08/19/19 12:00 08/19/19 12:00 08/19/19 12:00 08/19/19 12:00 08/19/19 12:00 Laboratory Results - last 24 hr 08/18/19 11:55: TSH 2.10 08/18/19 12:55: Urine RBC 20-50, Urine WBC 3-5, Ur Squamous Epith Cells Occasional, Amorphous Sediment 1+, Urine Bacteria None 08/18/19 13:00: Lactate 2.2 H 08/18/19 17:51: Lactate 1.4 08/18/19 20:46: POC Glucose 143 H 08/19/19 05:59: POC Glucose 175 H 08/19/19 06:54: WBC 16.5 H, RBC 3.80 L, Hgb 12.4 D, Hct 36.7 L, MCV 96.7, MCH 32.5 H, MCHC 33.6, RDW 14.4, Plt Count 115 L D, MPV 8.9, Neut % (Auto) 90.4 H, Lymph % (Auto) 4.8 L, [place] % (Auto) 4.0, Eos % (Auto) 0.3, Baso % (Auto) 0.4, Neut # (Auto) 14.9 H, Lymph # (Auto) 0.8, [place] # (Auto) 0.7, Eos # (Auto) 0.1, Baso # (Auto) 0.1, Total Counted 100, Neutrophils % (Manual) 89 H, Band Neutrophils % 2.0, Lymphocytes % (Manual) 7 L, Monocytes % (Manual) 1 L, Metamyelocytes % 1.0, Platelet Estimate Slight decrease, RBC Morphology Normal 08/19/19 06:54: Sodium 136, Potassium 4.5, Chloride 106, Carbon Dioxide 28, Anion Gap 6.5, BUN 15, Creatinine 1.38 H D, Estimated Creat Clear 62, Estimated GFR 38 L, Est GFR ( Amer) 46 L D, Glucose 169 H D, Calcium 8.2 L, Magnesium 1.6 I & O for Last 24 hours: Intake & Output 08/16/19 08/17/19 08/18/19 08/19/19 23:59 23:59 23:59 23:59 Intake Total 1999 Output Total 600 / 600 Balance 1400 / 2431 2116 Weight 103.7 kg 104.468 kg Narrative: Well-nourished white female in no apparent distress Pupils equal round reactive to light Abdomen soft nontender nondistended Alert and oriented x3 Internal Medicine - CN: Reslt - Labs CBC & Chem 7: 08/19/19 06:54 08/19/19 06:54 Labs: Short CBC 08/19/19 Range/Units 06:54 WBC 16.5 H (4.8-10.8) K/mm3 Hgb 12.4 D (12.2-16.2) g/dL Hct 36.7 L (37.0-47.0) % Plt Count 115 L D (142-424) K/mm3 [facility] 08/19/19 06:54 Sodium 136 Potassium 4.5 Chloride 106 Carbon Dioxide 28 BUN 15 Creatinine 1.38 H D Glucose 169 H D Calcium 8.2 L Assessment and Plan (1) Flank pain, acute Current visit: Yes Status: Acute Category: Medical Code(s): R10.9 - Unspecified abdominal pain (2) Leukocytosis Current visit: Yes Status: Acute Qualifiers: Leukocytosis type: unspecified Qualified Code(s): D72.829 - Elevated white blood cell count, unspecified Category: Medical Code(s): D72.829 - Elevated white blood cell count, unspecified (3) Abdominal pain, left lower quadrant Current visit: Yes Status: Acute Category: Medical Code(s): R10.32 - Left lower quadrant pain (4) Diabetes Current visit: Yes Status: Chronic Qualifiers: Diabetes mellitus type: type 2 Diabetes mellitus retirement insulin use: unspecified medical terminologist insulin use status Diabetes mellitus complication status: with other specified complication Qualified Code(s): E11.69 - Type 2 diabetes mellitus with other specified complication Category: Medical Code(s): E11.9 - Type 2 diabetes mellitus without com plications (5) Hypertension Current visit: Yes Status: Chronic Category: Medical Code(s): I10 - Essential (primary) hypertension (6) Hydronephrosis, left Current visit: Yes Status: Acute Category: Medical Code(s): N13.30 - Unspecified hydronephrosis (7) Cirrhosis Current visit: Yes Status: Acute Category: Medical Code(s): K74.60 - Unspecified cirrhosis of liver - Assessment and plan all Dx Assessment and Plan for all problems:: Left lower quadrant pain with associated nausea vomiting. CT scan was reviewed and there is signs of some inflammation along the upper tract on the left side. I suspect patient has some pyelonephritis. Her white count is improving with antibiotics and would suggest consider continued conservative management. We will plan to see her back in the office in 2 weeks and reevaluating. If she worsens today or over the weekend can transfer to [place] for possible stent placement if necessary. Would expect her to continue to clinically improve with antibiotics.
--- NOTE | 2019-08-20 08:18 | Progress Note ---
Internal Medicine - PN: Subj *Date: 08/20/19 *Time: 08:15 Interval history: Patient states she is feeling better this morning. Her pain has improved slightly on the left side. She has been running to the bathroom to urinate all night. She denies any vomiting or diarrhea. Exam Vital signs and Labs for Last 24 Hours: Temp Pulse Resp BP Pulse Ox 98.8 F 72 22 145/85 H 93 L 08/20/19 04:00 08/20/19 04:00 08/20/19 04:00 08/20/19 04:00 08/20/19 04:00 Laboratory Results - last 24 hr 08/19/19 06:54: Total Counted 100, Neutrophils % (Manual) 89 H, Band Neutrophils % 2.0, Lymphocytes % (Manual) 7 L, Monocytes % (Manual) 1 L, Metamyelocytes % 1.0, Platelet Estimate Slight decrease, RBC Morphology Normal 08/19/19 11:41: POC Glucose 187 H 08/19/19 17:01: POC Glucose 171 H 08/19/19 20:22: POC Glucose 144 H 08/20/19 05:48: POC Glucose 158 H I & O for Last 24 hours: Intake & Output 08/17/19 08/18/19 08/19/19 08/20/19 11:59 11:59 11:59 11:59 Intake Total 4117 / 4117 3450 / 3450 Output Total 600 / 600 2150 / 2150 Balance 3517 / 3517 1300 / 1300 Weight 218 lb 230 lb 5 oz 230 lb 1 oz - Constitutional no acute distress - *Routine Respiratory Exam Present: CTA bilaterally - *Routine Cardiovascular Exam Present: RRR - *Routine Abdominal Exam Present: soft, normoactive bowel sounds, tenderness (LUQ and LLQ) - *Routine Extremities Exam Present: edema (trace LE edema bilaterally). Absent: cyanosis, clubbing - *Routine Skin Exam Present: warm. Absent: rash - *Routine Neurological Exam Present: alert, oriented X3 Assessment and Plan (1) Flank pain, acute Current visit: Yes Status: Acute Category: Medical Code(s): R10.9 - Unspecified abdominal pain (2) Leukocytosis Current visit: Yes Status: Acute Qualifiers: Leukocytosis type: unspecified Qualified Code(s): D72.829 - Elevated white blood cell count, unspecified Category: Medical Code(s): D72.829 - Elevated white blood cell count, unspecified (3) Abdominal pain, left lower quadrant Current visit: Yes Status: Acute Category: Medical Code(s): R10.32 - Left lower quadrant pain (4) Diabetes Current visit: Yes Status: Chronic Qualifiers: Diabetes mellitus type: type 2 Diabetes mellitus 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 insulin use: unspecified residential insulin use status Diabetes mellitus complication status: with other specified complication Qualified Code(s): E11.69 - Type 2 diabetes mellitus with other specified complication Category: Medical Code(s): E11.9 - Type 2 diabetes mellitus without complications (5) Hypertension Current visit: Yes Status: Chronic Category: Medical Code(s): I10 - Essential (primary) hypertension (6) Hydronephrosis, left Current visit: Yes Status: Acute Category: Medical Code(s): N13.30 - Unspecified hydronephrosis (7) Cirrhosis Current visit: Yes Status: Acute Category: Medical Code(s): K74.60 - Unspecified cirrhosis of liver (8) Pyelonephritis Current visit: Yes Status: Acute Category: Medical Code(s): N12 - Tubulo- interstitial nephritis, not specified as acute or chronic - Assessment and plan all Dx Assessment and Plan for all problems:: Dr. Main saw the patient yesterday and feels she has a pyelonephritis. He recommends conservative management with IV antibiotics. He wanted to wait on the urine culture results. I have called regarding these and apparently the urine was not cultured. They also no longer have the patient's urine. Will order a urine culture today.
[2019-08-20 13:00] LABS: Basophils % 0.6 % (0.1-2.0); Eosinophils # 0.1 K/mm3 (0.0-0.4); Eosinophils % 0.9 % (0.1-12.0); Hemoglobin 12.2 g/dL (12.2-16.2); Lymphocytes # 0.7 K/mm3 (0.7-4.5); Lymphocytes % 12.4 % (10-50); Mean Corpuscular HGB Conc 34.8 g/dL (31.8-35.4); Mean Corpuscular Volume 93.4 fl (81-99); Mean Platelet Volume 9.2 fl (7.4-10.4); Monocytes # 0.4 K/mm3 (0.1-1.0); Monocytes % 6.3 % (1.7-9.3); Neutrophils # 4.5 K/mm3 (1.8-7.8); Neutrophils % 79.8 % (37.0-80.0); Platelet Count 94 K/mm3 (142-424); Red Blood Count 3.75 M/mm3 (4.20-5.40); Red Cell Distribution Width 14.6 % (11.5-17.5); White Blood Count 5.6 K/mm3 (4.8-10.8)
--- NOTE | 2019-08-20 16:05 | Discharge Summary ---
General - General Admission date:: 08/18/19 Discharge date: 08/20/19 HPI HPI: Ms. Quiroz is a 69-year-old patient of Dr. Stefany Davila in [place] who began having left lower back and left lower quadrant pain last night. She also had vomiting and diarrhea. This continued throughout the night and her vomiting and diarrhea subsided around 11 AM today. The pain has not subsided. She states she presented to the emergency room for further evaluation and was found to have a left-sided kidney stone. Her white blood cell count was elevated at 19 and her lactic acid was elevated. She was therefore admitted for IV fluids, antibiotics, and a repeat CT scan with contrast. Dr. Main was also consulted for the kidney stone and will see the patient tomorrow. Hospital Course Hospital Course: The patient's repeat CT with contrast showed left hydronephrosis with a filling defect at the proximal left ureter causing mild UPJ obstruction. There was moderate stranding of the left perinephric renal fat and periureteral fat consisting consistent with underlying inflammatory versus infectious change. There was no ureteral calculi evident. There was also mild edema of the tail of the pancreas and cirrhosis with retroperitoneal varices. Her pancreatic enzymes were normal. The patient was admitted and started on IV fluids and IV Invanz. She was also started on pain control. She was able to rest some with pain medication. She had no further vomiting or diarrhea after admission. She was seen in consultation by Dr. Main who felt she had a pyelonephritis. He felt since her white count was improving with antibiotics, he would continue conservative management. He wanted to follow-up with her in his office in a few weeks. He felt if her symptoms worsened, she could be transferred for possible stent placement if necessary. The patient's blood cultures returned with no growth. She did not have an initial urine culture done, therefore this was ordered. It is still pending. The patient's pain did improve and her white count normalized. Her renal functions improved as well. The patient lost IV access and refused another IV. As her white blood cell count had normalized, she was stable to be discharged home on Levaquin and cefdinir. She will need to follow-up with both Dr. Main and with Stefany Davila her primary care physician. Objective Vital signs: Temp Pulse Resp BP Pulse Ox 98.2 F 84 20 163/79 H 95 11/22/19 11:42 08/20/19 11:42 08/20/19 11:42 08/20/19 11:42 08/20/19 11:42 Narrative: - Constitutional no acute distress - *Routine HEENT Exam Head: Present: normocephalic Eye: Present: EOMI, PERRL ENT: Present: mucous membranes dry - *Routine Neck Exam Present: supple. Absent: lymphadenopathy - *Routine Respiratory Exam Present: CTA bilaterally - *Routine Cardiovascular Exam Present: RRR - *Routine Abdominal Exam Present: soft, normoactive bowel sounds, tenderness (LLQ) - *Routine Extremities Exam Absent: cyanosis, clubbing, edema - *Routine Skin Exam Present: warm. Absent: rash - *Routine Neurological Exam Present: alert, oriented X3 Results Labs on day of discharge: Labs from last 24 hours 08/20/19 08/20/19 08/19/19 12:50 05:48 20:22 WBC 5.6 D RBC 3.75 L Hgb 12.2 Hct 35.0 L MCV 93.4 MCH 32.5 H MCHC 34.8 RDW 14.6 Plt Count 94 L MPV 9.2 Neut % (Auto) 79.8 Lymph % (Auto) 12.4 [place] % (Auto) 6.3 Eos % (Auto) 0.9 Baso % (Auto) 0.6 Neut # (Auto) 4.5 Lymph # (Auto) 0.7 [place] # (Auto) 0.4 Eos # (Auto) 0.1 Baso # (Auto) 0.0 POC Glucose 158 H 144 H 08/19/19 08/19/19 17:01 11:41 WBC RBC Hgb Hct MCV MCH MCHC RDW Plt Count MPV Neut % (Auto) Lymph % (Auto) [place] % (Auto) Eos % (Auto) Baso % (Auto) Neut # (Auto) Lymph # (Auto) [place] # (Auto) Eos # (Auto) Baso # (Auto) POC Glucose 171 H 187 H Preliminary micro results at discharge 08/18/19 13:00 Blood Culture - Preliminary Blood NO GROWTH AFTER 48 HOURS 08/18/19 13:05 Blood Culture - Preliminary Blood NO GROWTH AFTER 48 HOURS DS: Diagnosis - Discharge Diagnosis (1) Flank pain, acute Status: Acute (2) Leukocytosis Status: Acute (3) Abdominal pain, left lower quadrant Status: Acute (4) Diabetes Status: Chronic (5) Hypertension Status: Chronic (6) Hydronephrosis, left Status: Acute (7) Cirrhosis Status: Acute (8) Pyelonephritis Status: Acute Discharge Plan - Patient Discharge Instructions ACTIVITY: Limited activity DIET: advance to your usual diet Patient Instructions: DI for Hydronephrosis-Adult - Follow up Plan Follow up with: Stefany Davila [Primary Care Provider] - 08/24/19 11:30 am (contact him today for follow-up next week romaine) Disposition: Home, Self-Assisted Medications: Home Medications Medication Instructions Recorded Confirmed Type Escitalopram Oxalate [Lexapro] 10 mg PO DAILY 11/09/17 08/18/19 History Lisinopril [Lisinopril 10mg Tab] 10 mg PO DAILY 11/09/17 08/18/19 History Metformin HCl 500 mg PO 1700 08/18/19 08/19/19 History Naproxen 500 mg PO BIDP PRN 08/18/19 08/19/19 History Propranolol HCl 10 mg PO DAILYP PRN 08/18/19 08/18/19 History Venlafaxine HCl [Effexor Xr] 150 mg PO DAILY 08/18/19 08/19/19 History Metformin HCl [Metformin 1000mg 1,000 mg PO DAILY 08/19/19 08/19/19 History Tablets] Cefdinir [Omnicef 300mg Capsule] 300 mg PO BID #14 cap 08/20/19 Rx levoFLOXacin [Levaquin 500mg 500 mg PO DAILY #5 tab 08/20/19 Rx tab] Prescriptions/Medication Reconciliation: New levoFLOXacin [Levaquin 500mg tab] 500 mg PO DAILY #5 tab Cefdinir [Omnicef 300mg Capsule] 300 mg PO BID #14 cap Continued Lisinopril [Lisinopril 10mg Tab] 10 mg PO DAILY Escitalopram Oxalate [Lexapro] 10 mg PO DAILY Naproxen 500 mg PO BIDP PRN PRN Reason: pain Venlafaxine HCl [Effexor Xr] 150 mg PO DAILY Metformin HCl 500 mg PO 1700 Propranolol HCl 10 mg PO DAILYP PRN PRN Reason: Anxiety Metformin HCl [Metformin 1000mg Tablets] 1,000 mg PO DAILY - Problem Reconciliation Problems Reviewed?: Yes
== END 2019-08-20 15:10 | disposition home or self-care (01) | DRG 690 ==
LOC: ER 11:15 → 2ND 14:39
PROVIDERS: ADMIT Family Medicine; ATTEND Family Medicine
CPT/HCPCS: 36415; 74176; 74177; 80048; 80053; 81001; 82150; 82962; 83605; 83690; 83735; 84443; 85007; 85025; 87040; 87086; 96365; 96367; 96375; 96376; 99285; J1335; J2405; Q9967

== ENCOUNTER → 2019-09-01 12:03 | Outpatient (CLI) | payer MEDICARE, SELFPAY ==
[2019-09-01 12:30] LABS: Blood Urea Nitrogen 17 mg/dL (7-18); Creatinine,Serum 0.87 mg/dL (0.55-1.02); Estimated Glomerular Filt Rate 64 ml/min (>60); GFR (African American) 78 ML/MIN (>60)
== END ==
PROVIDERS: PCP Family Medicine; Visit Provider Family Medicine
DX: R93.5 Abnormal findings on diagnostic imaging of other abdominal regions, including retroperitoneum (principal)
CPT/HCPCS: 36415; 82565; 84520

== ENCOUNTER → 2019-09-02 10:11 | Outpatient (CLI) | payer MEDICARE, SELFPAY ==
--- NOTE | 2019-09-02 10:15 | CT_ITS ---
PROCEDURE: CT ABDOMEN PELVIS W CON CLINICAL INDICATION: HYDRONEPHROSIS W/FILLING DEFECTS LT RENAL PELVIS AND CALICES Follow-up left hydronephrosis with filling defects in the renal pelvis COMPARISON: CT ABDOMEN PELVIS WO CON from 08/18/2019 CT ABDOMEN PELVIS W CON from 08/18/2019 TECHNIQUE: IV Contrast: 75ML OPTIRAY 350 Oral Contrast 450ml Redicat Axial images obtained with sagittal and coronal reformats. All CT scans at the facility use one or more dose reduction, viz: automated exposure control, ma/kV adjustment per patient size (including targeted exams where dose is matched to indication, i.e. head), or iterative reconstruction technique. FINDINGS: LOWER THORAX: No acute finding ABDOMEN & PELVIS: Post cholecystectomy. There is some minimal irregularity of the liver surface. Small periportal lymph nodes are present. Varices are once again noted in the perigastric region and along the left retroperitoneum. Adrenal enlargement on the left is once again noted consistent with an adenoma. Previously noted filling defects in the left renal pelvis are no longer apparent. No obstructive uropathy evident. There is some cortical scarring of the left kidney. Previously noted stranding of the fat at the tail the pancreas has improved. Stranding of the left perinephric renal fat has also improved. No hydronephrosis. There is mild atrophy of the left kidney. The appendix is unremarkable. There is sigmoid diverticulosis without diverticulitis. IMPRESSION: 1. Interval resolution of the filling defects in the left renal pelvis as well as resolution of the stranding of the left perinephric renal fat and stranding of the fat adjacent to the pancreatic tail. 2. There is some irregularity of the hepatic surface suggesting cirrhosis with perigastric and left retroperitoneal varices. Dictated by: Fritz Newton MD 09/03/2019 05:38 Electronically signed by Fritz Newton MD in [place] 09/03/2019 12:55
== END ==
PROVIDERS: PCP Family Medicine; Visit Provider Family Medicine
DX: R93.5 Abnormal findings on diagnostic imaging of other abdominal regions, including retroperitoneum (principal)
CPT/HCPCS: 74177; Q9967

== ENCOUNTER → 2021-06-11 12:04 | Outpatient (CLI) | payer MEDICARE, SELFPAY ==
--- NOTE | 2021-06-12 13:14 | PC.NURSE ---
PATIENT NOTIFIED OF POSITIVE COVID TEST AT THIS TIME
== END ==
PROVIDERS: PCP Family Medicine; Visit Provider Nurse Practitioner
DX: Z20.822 Contact with and (suspected) exposure to COVID-19 (principal); U07.1 COVID-19
CPT/HCPCS: C9803; U0003; U0005

== ENCOUNTER → 2022-08-21 13:37 | Outpatient (CLI) | payer MEDICARE, SELFPAY ==
--- NOTE | 2022-08-21 13:50 | MM_ITS ---
PROCEDURE INFORMATION: Exam: US Left Breast, Complete MG Bilateral Diagnostic Breast Tomosynthesis Exam date and time: 08/21/2022 3:01 PM Age: 72 years old Clinical indication: Left breast pain; Left breast discharge; Additional info: Bloody discharge TECHNIQUE: Imaging protocol: Complete ultrasound of all four quadrants of the Left breast and the retroareolar regions, including ultrasound of the axilla when performed. Bilateral Diagnostic tomosynthesis and 2D mammography including computer-aided detection (CAD) when performed. Unilateral or bilateral exam. COMPARISON: US BREAST LTD LT 09/17/2018 3:45 PM FINDINGS: MAMMOGRAPHY: The breast tissue is composed of scattered areas of fibroglandular density. There is no stellate mass, architectural distortion or suspicious microcalcifications in either breast to suggest malignancy. No skin thickening or axillary adenopathy. ULTRASOUND: Sonographic images of the left breast including the retroareolar region, all 4 quadrants and the axilla demonstrates a questionable hypoechoic solid mass in the 3 o'clock axis 3 cm from the nipple versus an island of fibrofatty tissue measuring 0.8 x 0.3 x 0.5 cm in dimension. There is no mammographic correlate. Few scattered subcentimeter cysts are noted. No suspicious findings in the retroareolar region. No architectural distortion or acoustical shadowing. No skin thickening or axillary adenopathy. IMPRESSION: 1. Probably benign island of fibroglandular structures in the left 3 o'clock axis. This is only seen on sonography. A six-month follow-up targeted left breast ultrasound is recommended to ensure stability over time. 2. MRI is recommended for any spontaneous clear and/or hemorrhagic nipple discharge. If performed, the MRI can also assess the left 3 o'clock axis questionable mass seen on sonography ASSESSMENT: BI-RADS Category 3: Probably benign
== END ==
PROVIDERS: PCP Family Medicine; Visit Provider Family Medicine
DX: N64.52 Nipple discharge (principal)
CPT/HCPCS: 76641; 77062; 77066; G0279

== ENCOUNTER → 2023-05-08 14:32 | Outpatient (CLI) | payer MEDICARE, SELFPAY ==
--- NOTE | 2023-05-08 14:37 | XR_ITS ---
FINAL REPORT CLINICAL HISTORY: plantar foot pain FINDINGS: RIGHT FOOT 3 views of the right foot were obtained. There is no acute fracture or dislocation. There are moderate degenerative changes and calcaneal spurs. Visualized joint spaces are normally aligned. Soft tissues are unremarkable. IMPRESSION: No acute bony abnormality. Reviewed, Interpreted and Dictated by Toño eHnson III, MD Transcribed by Callie Torrez Authenticated and [facility]
== END ==
PROVIDERS: PCP Family Medicine; Visit Provider Nurse Practitioner Family
DX: M79.671 Pain in right foot (principal); B35.1 Tinea unguium
CPT/HCPCS: 73630; 87102; 87206; 87220

== ENCOUNTER 2025-05-25 11:02 | Outpatient (CLI) | payer MEDICARE, SELFPAY ==
--- NOTE | 2025-05-25 11:05 | US_ITS ---
FINAL REPORT TECHNIQUE: Sonographic images of the abdomen were obtained in all four quadrants. CLINICAL HISTORY: CIRROHSIS FINDINGS: LIVER: The liver is coarsened in echotexture, small, and nodular consistent with cirrhosis. The portal vein is patent. GALLBLADDER: The gallbladder is not identified. History of cholecystectomy was not provided but it may be surgically absent. The common duct is not identified. PANCREAS: Unremarkable. RIGHT KIDNEY: 10.6 cm. No hydronephrosis, mass or stone. LEFT KIDNEY: 9.3 cm. No hydronephrosis, mass or stone. SPLEEN: 10.9 cm. No focal splenic lesion. AORTA/IVC: No abdominal aortic aneurysm. Visualized IVC within normal limits. OTHER: No ascites. IMPRESSION: Liver is small and nodular consistent with cirrhosis, otherwise unremarkable exam. Reviewed, Interpreted and Dictated by Arabella Rajan MD Transcribed by Verena Khan Authenticated and . [facility]
--- OUTSIDE RECORDS SUMMARY | 2025-05-25 11:10 | XMS_ITS | Encounter Summary ---
Author Organization Healthcare Address [address] [place] [address] Care Team Providers Care Roll Press Operator Name Role Phone Stefany Davila MD Primary Care Provider [phone] Reason for Visit * Reason Onset Date Comments Med Refill 05/16/2025 Encounter Details Date Type Department Care Team (Late st Contact Info) Description 05/16/2025 Refill [facility] [address] [place] [address] Stefany Davila MD [address] [place] [address] Controlled type 2 diabetes mellitus with diabetic polyneuropathy, with long-term current use of insulin ([facility]) Social History Tobacco Use Types Packs/Day Years Used Date Smoking Tobacco: Former Cigarettes 0.5 20 1 - 2016 Passive Smoke Exposure: Never Smokeless Tobacco: Never Humiliation, Afraid, Rape, and Kick questionnair e Answer Date Recorded Within the last year, have y ou been afraid of your partner or ex-partner? No 06/03/2024 Within the last year, have y ou been humiliated or emotionally abused in other ways by your partner or ex-partner? No Within the last year, have y ou been kicked, hit, slapped, or otherwise physically hurt by your partner or ex-partner? No 06/03/2024 Within the last year, have y ou been raped or forced to have any kind of sexual activity by your partner or ex-partner? No 06/03/2024 Social Connection and Isolation Panel Answer Date Recorded In a typical week, how many times do you talk on the phone with family, friends, or neighbors? More than three times a week 11/13/2023 How often do you get togethe r with friends or relatives? Twice a week 11/13/2023 How often do you attend [facility] or druze services? More than 4 times per year 11/13/2023 Do you belong to any clubs o r organizations such as muslim groups, unions, fraternal or athletic groups, or school groups? No 11/13/2023 How often do you attend meet ings of the clubs or organizations you belong to? Never 11/13/2023 Are you , , di vorced, , never , or living with a partner? 11/13/2023 AUDIT-C Answer Date Recorded Q1: How often do you have a drink containing alcohol? Never 11/13/2023 Q2: How many drinks containi ng alcohol do you have on a typical day when you are drinking? Patient does not drink Q3: How often do you have si x or more drinks on one occasion? Never 11/13/2023 PHQ-2 Answer Date Recorded Patient Health Questionnaire-2 Score 4 09/27/2024 [facility] Occupational Stress Questionnaire Answer Date Recorded Do you feel stress - tense, restless, nervous, or anxious, or unable to sleep at night because your mind is troubled all the time - these days? Very much 11/13/2023 Exercise Vital Sign Answer Date Recorde d On average, how many days pe r week do you engage in moderate to strenuous exercise (like a brisk walk)? 0 days 11/13/2023 On average, how many minutes do you engage in exercise at this level? 0 min 11/13/2023 Hunger Vital Sign Answer Date Recorded Within the past 12 months, y ou worried that your food would run out before you got the money to buy more. Sometimes true Within the past 12 months, t he food you bought just didn't last and you didn't have money to get more. Never true 01/2024 PRAPARE - Transportation Answer Date Re corded In the past 12 months, has l ack of transportation kept you from medical appointments or from getting medications? No 01/2024 In the past 12 months, has l ack of transportation kept you from meetings, work, or from getting things needed for daily living? No 06/03/2024 Housing Stability Vital Sign Answer Natalio e Recorded In the last 12 months, was t here a time when you were not able to pay the mortgage or rent on time? No 06/03/2024 In the last 12 months, how many places have you lived? 1 06/03/2024 In the last 12 months, was t here a time when you did not have a steady place to sleep or slept in a intermediate (including now)? No 06/03/2024 PHQ-9 Answer Date Recorded Patient Health Questionnaire-9 Score 15 09/27/2024 Safety and Environment Answer Date Chilo rded Do you worry that your child may have been physically abused? Did not ask 11/13/2023 Do you worry that your child may have been sexua lly abused? Did not ask 11/13/2023 Are there any guns kept in o r around your home or where your child spends time? Did not ask 11/13/2023 Guns Unloaded or Locked Away Not on file Utilities Answer Date Recorded In the past 12 months has th e electric, gas, oil, or water company threatened to shut off services in your home? Yes 06/03/2024 PHQ-2A Answer Date Recorded Patient Health Questionnaire-2 Score 0 08/20/2023 Comments No Sex and Gender Information Value Date Recorded Sex Assigned at Not on file Legal Sex Female 6:17 PM EDT Gender Identity Not on file Sexual Orientation Not on file documented as of this encounter Miscellaneous Notes * Telephone Encounter - Adair Herrera MD - 05/16/2025 3:10 PM EDT Med sent documented in this encounter Plan of Treatment Not on file documented as of this encounter Visit Diagnoses Diagnosis Controlled type 2 diabetes mellitus with diabetic polyneuropathy, with long-term current use of insulin ([facility]) documented in this encounter Additional Health Concerns Assessment Noted Time PHQ-9 Depression Total Score: 15 024 1:35 PM EST A fall risk assessment has been complete d for the patient 12/29/2024 12:59 PM EDT A Body Mass Index follow-up plan has been documented for the patient 12/29/2024 1:58 PM EDT documented as of this encounter Care Teams Roll Press Operator Relationship Specialty Start Date End Date Stefany Davila MD [address] [place] [address] PCP - General 02/09/21 documented as of this encounter
--- OUTSIDE RECORDS SUMMARY | 2025-05-25 11:10 | XMS_ITS | Clinical Summary ---
Author Organization Healthcare Address [address] [place] [address] Care Team Providers Care Felling Bucking Supervisor Name Role Phone Stefany Davila MD Primary Care Provider [phone] Allergies No known active allergies Medications Blood Glucose Monitoring Suppl device Use to test blood sugar twice a day 1 kit 10/01/19 22 Active Blood Glucose Monitoring Suppl ([facility] Blood Glucose Meter) w/Device kitIndications:C ontrolled type 2 diabetes mellitus without complication, without long-term current use of insulin 1 kit 4 (four) times a day. 1 kit 06/14/20 22 Active glucose blood (Accu-Chek Guide) test stripIndications :Controlled type 2 diabetes mellitus without complication, without long-term current use of insulin USE 1 STRIP TO CHECK GLUCOSE 2 TO 3 TIMES DAILY 300 each 3 05/19/20 24 Active busPIRone (Buspar) 10 MG tabletIndication s:Anxiety Take 1 tablet (10 mg) by mouth 3 (three) times a day. 270 tablet 3 09/27/20 24 Active omeprazole (PriLOSEC) [address] capsule Take 1 capsule (40 mg) by mouth 1 (one) time each day. 09/20/20 24 Active DULoxetine (Cymbalta) [address] capsuleIndicatio ns:Anxiety Take 1 capsule (60 mg) by mouth 1 (one) time each day. Do not crush or chew. 90 capsule 2 10/11/19 25 Active escitalopram (Lexapro) 20 MG tabletIndication s:Moderate episode of recurrent major depressive disorder (CMS/HCC) Take 1 tablet by mouth daily. 90 tablet 3 12/30/19 25 Active atorvastatin (Lipitor) 20 MG tabletIndication s:Controlled type 2 diabetes mellitus without complication, without long-term current use of insulin Take 1 tablet by mouth daily. 90 tablet 3 12/30/19 25 Active traZODone (Desyrel) 50 MG tabletIndication s:Moderate episode of recurrent major depressive disorder (CMS/HCC),Contro lled type 2 diabetes mellitus without complication, without long-term current use of insulin,Routine general medical examination at health care facility Take 1 tablet by mouth nightly. 90 tablet 3 12/30/19 25 Active insulin glargine (Lantus SoloStar) 100 UNIT/ML injection penIndications:C ontrolled type 2 diabetes mellitus without complication, without long-term current use of insulin Inject 14 Units under the skin nightly. 15 mL 1 12/21/19 25 Active lisinopril 20 MG tabletIndication s:Primary hypertension Take 1 tablet by mouth daily. 90 tablet 3 01/21/20 25 Active insulin pen needle (B-D ULTRAFINE III SHORT PEN) 31G X 8 mm miscIndications: Controlled type 2 diabetes mellitus without complication, without long-term current use of insulin USE 1 SUBCUTANEOUSLY ONCE DAILY DIRECTED 100 each 2 03/22/20 25 Active semaglutide (Ozempic, 2 MG/DOSE,) 8 MG/3ML solution pen-injectorIndi cations:Controll ed type 2 diabetes mellitus without complication, with long-term current use of insulin Inject 2 mg under the skin 1 time per week. 3 mL 5 04/06/20 25 Active gabapentin (Neurontin) 300 MG capsuleIndicatio ns:Controlled type 2 diabetes mellitus with diabetic polyneuropathy, with long-term current use of insulin (CMS/HCC) Take 1 capsule by mouth 2 times a day. 60 capsule 2 05/16/20 25 Active gabapentin (Neurontin) 300 MG capsuleIndicatio ns:Controlled type 2 diabetes mellitus with diabetic polyneuropathy, with long-term current use of insulin (CMS/HCC) Take 1 capsule by mouth in the morning and 1 capsule before bedtime. 60 capsule 2 12/30/19 25 025 Discontin ued(Reord er) Active Problems Problem Noted Date Diagnosed Date Numbness and tingling of both feet 07/10/2023 Varices, gastric 09/09/2019 Obesity (BMI 35.0-39.9 without comorbidity) 08/29 Arthritis 12/24/2014 Controlled type 2 diabetes mellitus 12/24/2014 Depression 12/24/2014 HTN (hypertension) 12/24/2014 Hypothyroidism 12/24/2014 Resolved Problems Problem Noted Date Diagnosed Date Resolved Date Cirrhosis of liver 09/09/2019 3 Encounters Date Type Department Care Team Description 05/16/2025 Orders Only [facility] [address] [place] [address] Adair Herrera MD Controlled type 2 diabetes mellitus with diabetic polyneuropathy, with long-term current use of insulin ([facility]) 05/16/2025 Orders Only [facility] [address] [place] [address] Adair Herrera MD 05/16/2025 Refill [facility] [address] [facility] [place] [address] Stefany Davila MD Controlled type 2 diabetes mellitus with diabetic polyneuropathy, with long-term current use of insulin ([facility]) 04/05/2025 Refill [facility] [address] [place] [address] Stefany Davila MD Controlled type 2 diabetes mellitus without complication, with long-term current use of insulin 03/18/2025 Refill [facility] [address] [place] [address] Stefany Davila MD Controlled type 2 diabetes mellitus without complication, without long-term current use of insulin from Last 3 Months Immunizations Immunization Administration Dates Next Due Influenza, high-dose, quadrivalent 07/10/2023 Pneumococcal 20-alma Conj Vaccine 12/29/2024 Pneumococcal Conjugate PCV 13 05/06/2017 Family History Medical History Relation Name Comments Hypertension Sister 1 Diabetes type II Sister 2 Relation Name Status Comments Sister 1 Sister 2 Social History Tobacco Use Types Packs/Day Years Used Date Smoking Tobacco: Former Cigarettes 0.5 20 1 997 - 2017 Passive Smoke Exposure: Never Smokeless Tobacco: Never Tobacco Cessation:Counseling Given: Yes Humiliation, Afraid, Rape, and Kick questionnair e [...] How often do you attend [facility] or baptism services? More than 4 times per year 11/13/2023 Do you belong to any clubs o r organizations such as uatsdin groups, unions, fraternal or athletic groups, or [...] Recorded Patient Health Questionnaire-2 Score 4 09/27/2024 [facility] - Occupational Stress Questionnaire Answer Date Recorded [...] place to sleep or slept in a usp (including now)? No 06/03/2024 PHQ-9 Answer Date [...] on file Sexual Orientation Not on file Last Filed Vital Signs Vital Sign Reading Time Taken Comments Blood Pressure 130/78 12/29/2024 12:52 PM EDT Pulse 92 12/29/2024 12:52 PM EDT Temperature 37 C (98.6 F) 12/29/2024 12:52 PM EDT Respiratory Rate 14 12/29/2024 12:52 PM EDT Oxygen Saturation 98% 12/29/2024 12:52 PM EDT Inhaled Oxygen Concentration - - Weight 89.8 kg (198 lb) 01/03/2025 9:15 AM EDT Height 162.6 cm (5' 4 ) 01/03/2025 9:15 AM EDT Body Mass Index 33.99 01/03/2025 9:15 AM EDT Plan of Treatment Health Maintenance Due Date Last Done Comments [facility]-Bone Density Scan 1950 [facility]-Infant/Child/Adol SDOH Screenings 1950 Diabetes: Dental Exam 1958 [facility]-DTaP,Tdap,and Td Vaccines (1 - Tdap) 1967 [facility]-RSV Vaccine: 60+ Years or (1 - 1-dose 75+ series) 2023 [id number] Vaccine ( - season) 2024 [facility]- SDOH Screenings 12/01/2024 [facility]-Adult SDOH Screenings 12/01/2024 06/03/2024 [facility]-Influenza Vaccine (#1) 2025 07/10/2023 [facility]-Diabetes: Hemoglobin A1C 06/28/2025 12/29/2024, 09/27/2024, 03/02/2024, Additional history exists [facility]-Depression Screening 09/27/2025 09/27/2024, 08/31 [facility]-Zoster Vaccines (1 of 2) 09/27/2025 Postponed from 1998 (Patient Refused) [facility]-Medicare Annual Wellness (AWV) 12/29/2025 12/29/2024, 11/20/2023 Colonoscopy Discontinued 05/20/2016 [facility]-Colorectal Cancer Screening Discontinued [facility]-Breast Cancer Screening Discontinued 02/02/2020 [facility]-Hepatitis C Screening Completed 04/23/2024, 08/2019 [facility]-Obesity Intervention Completed 025, 12/29/2024, 09/27/2024, Additional history exists [facility]-Pneumococcal Vaccine: 50+ Years Completed 12/29/2024, 05/06/2017 CT Colonography Discontinued FIT-DNA Discontinued FIT Discontinued FOBT Discontinued HPV Vaccines Aged Out No longer eligi ble based on patient's age to complete this topic Sigmoidoscopy Discontinued [facility]-HIB Vaccines Aged Out No longer e ligible based on patient's age to complete this topic [facility]-Hepatitis A Vaccines Aged Out No longer eligible based on patient's age to complete this topic [facility]-IPV Vaccines Aged Out No longer e ligible based on patient's age to complete this topic [facility]-Rotavirus Vaccines Aged Out No lo nger eligible based on patient's age to complete this topic Procedures Procedure Name Priority Date/Time Associated Diagnosis Comments HEMOGLOBIN A1C Routine 12/29/2024 2:07 PM EDT Controlled type 2 diabetes mellitus without complication, without long-term current use of insulin Routine general medical examination at health care facility ACUTE HEPATITIS PANEL Routine 04/23/2024 11:[address] scan, liver MAMMOGRAPHY EXTERNAL RESULTS 02/02/2020 COLONOSCOPY 05/20/2016 from Last 3 Months or Most Recently Relevant to Health Maintenance Results * Hemoglobin A1c (12/29/2024 2:07 PM EDT) Hemoglobin A1c 5.5 <5.7 % 12/29/2024 7:[address] [facility] Blood Venous blood specimen / Unknown Venipuncture / Unknown 12/29/2024 2:07 PM EDT 12/29/2024 2:[address] [facility] - 12/29/2024 7:01 PM EDT HA1C Interpretive Data: Diagnosis of Diabetes: Diabetic > or = 6.5% Pre-diabetic 5.7 to 6.4% Non-diabetic < or = 5.6% Glycemic Targets for Type I and Type II Diabetics: Non- Adults <7.0% Adults <6.0% Children and Adolescents <7.5% Source: [place] [employer]. Standards of medical care in diabetes,2017. Diabetes Care.2017:40 (suppl 1):S1-S135. HbA1c assay performed by an ion-exchange chromatography method that is certified traceable to the DCCT. us Stefany Davila MD LAB BLOOD ORDERABLES Final Re sult Performing Organization Address City/[facility]/ZIP Co de Phone Number [facility] [address] [place] [address] * Hepatitis panel, acute (04/23/2024 11:55 AM EDT) Hepatitis B Surf Antigen Negative Negative 04/23/2024 8:43 PM EDT [facility] Hepatitis C Antibody Negative Negative 04/23/2024 8:43 PM EDT [facility] Hepatitis A Antibody IgM Negative Negative 04/23/2024 8:43 PM EDT [facility] Hepatitis B Core Antibody IgM Negative Negative 04/23/2024 8:43 PM EDT [facility] Blood Venous blood specimen / Unknown Venipuncture / Unknown 04/23/2024 11:55 AM EDT 04/23/2024 11:56 AM EDT us Colleen Lira APRN LAB BLOOD ORDERABLES Final Result Performing Organization Address City/[facility]/ZIP Co de Phone Number [facility] [address] [place] [address] * MAMMOGRAPHY EXTERNAL RESULTS (02/02/2020) Anatomical Region Laterality Modality Mammography Narrative 02/02/2020 Ordered by an unspecified provider. us External Provider IMG BI PROCEDURES Final Result * COLONOSCOPY (05/20/2016) Anatomical Region Laterality Modality Endoscopy Narrative 05/20/2016 Ordered by an unspecified provider. us Historical Provider GI PROCEDURE ORDERABLES Dara l Result from Last 3 Months or Most Recently Relevant to Health Maintenance Insurance [employer] MEDICARE Care Teams Felling Bucking Supervisor Relationship Specialty Start Date End Date Stefany Davila MD [facility] [place] [address] PCP - General 02/09/21
--- OUTSIDE RECORDS SUMMARY | 2025-05-25 11:10 | XMS_ITS | Encounter Summary ---
Author Organization Healthcare Address [address] [place] [address] Care Team Providers Care Director Of Psychiatry Name Role Phone Stefany Davila MD Primary Care Provider [phone] Chana Healy PRESS TENDER SHORT GOODS Unavailable Unavaila ble Encounter Details Date Type Department Care Team (Late st Contact Info) Description 11/29/2024 Outside Procedure External Location [address] [place] [address] Stefany Davila MD [address] [place] [address] Social History Tobacco Use Types Packs/Day Years Used Date Smoking Tobacco: Former Cigarettes 0.5 20 1 7 - 2017 Smokeless Tobacco: Never Humiliation, Afraid, Rape, and [...] week 11/13/2023 How often do you attend chur or roman catholic services? More than 4 times per year 11/13/2023 Do you belong to any clubs o r organizations such as amish groups, unions, fraternal or athletic groups, or [...] Recorded Patient Health Questionnaire-2 Score 4 09/27/2024 [facility] Questionnaire Answer Date Recorded [...] place to sleep or slept in a longterm (including now)? No 06/03/2024 PHQ-9 Answer Date [...] on file documented as of this encounter Plan of Treatment Not on file documented as of this encounter Procedures Procedure Name Priority Date/Time Associated Diagnosis Comments MAMMOGRAPHY BREAST POST BIOPSY CLIP BILATERAL 11/29/2024 2:33 PM EST documented in this encounter Results * Mammography Breast Post Biopsy Clip Bilateral (11/29/2024 2:33 PM EST) Anatomical Region Laterality Modality Breast Bilateral Mammography 11/29/2024 2:33 PM EST Narrative 11/29/2024 4:38 [place] [address] Name: NOEMI PERAZA Exam Date: 11/29/2024 : 1950 Age 74 years Gender: F Physician: Stefany Davila Facility: [facility] Facility HSV: Outpatient Exam: MICHAEL DIAG MAMMO W/CAD BILAT Exam: 1.Bilateral Diagnostic Mammogram with 2D and 3D (tomosynthesis)imaging 2.Left Breast Ultrasound Clinical indication: Patient presents for palpable left breast lump, left nipple discharge, and follow-up left breast mass. History of bilateral surgeries. Comparison: Exams to 2018 TECHNIQUE: Diagnostic Bilateral 2D mammography and 3D (tomosynthesis) imaging were performed.Targeted ultrasound assessing sotomayor-scale and color flow performed. BREAST DENSITY:There are scattered areas of fibroglandular density. FINDINGS: Mammography: A linear radiopaque scar marker in the upper outer left breast denotes the site of prior left breast surgery, there is stable postsurgical distortion seen in the upper/central outer left breast. A radiopaque marker denotes the area of palpable concern in the upper outer left breast. Subjacent to the marker, there is no suspicious adjacent findings. No suspicious findings in the subareolar left breast. No suspicious masses, calcifications or distortion in the right breast Ultrasound: Left breast: 1:00, 4 cm from the nipple, in the area of palpable concern there is an irregular hypoechoic mass measuring 11 x 5 x 8 mm. No suspicious findings in the subareolar region. Benign ducts seen within the left breast 9:00 position 6 cm from the nipple IMPRESSION: Indeterminate left breast mass at the 1:00 position in the area of concern. No suspicious findings to account for the patient's left nipple discharge. Benign ducts seen in the left breast 9:00 position. No evidence of malignancy in the right breast Recommendation: Ultrasound-guided biopsy of the left breast 1:00 mass recommended The results of this report will be reported to the patient by letter in layman's terms. Legally authenticated by BRADLEY LEGGETT 2024-11-29 15:14:41 ACR BI-RADS:4 - Suspicious abnormality Mammography does not detect approximately 10-15% of breast cancers. A normal mammogram does not exclude breast cancer in a patient with palpable mass or abnormal findings on physical examination. These patients may need biopsies and when clinically indicated a biopsy should not be postponed because of a normal mammogram. If the patient has breast surgery or biopsy, FDA/MQSA Regulatory Guidelines mandate that this facility receive pathologic results for follow-up correlation. Electronically signed by: Marco A Garcia MD 11/29/2024 04:34 PM [facility] Dictated By: Marco A Garcia Transcribed By: Transcribed On: 11/29/2024 3:14 PM Electronically signed by: Marco A Garcia 11/29/2024 Thank you for referring NOEMI PERAZA to [facility]. Legally authenticated by BRADLEY LEGGETT 2024-11-29 15:14:41 Procedure Note Provider, [facility] - 11/29/2024 [place] [address] Name: NOEMI PERAZA Exam Date: 11/29/2024 : 1950 Age 74 years Gender: F Physician: Stefany Davila Facility: [facility] Facility HSV: Outpatient Exam: MICHAEL DIAG MAMMO W/CAD BILAT Exam: 1.Bilateral Diagnostic Mammogram with 2D and 3D (tomosynthesis)imaging 2.Left Breast Ultrasound Clinical indication: Patient presents for palpable left breast lump,left nipple discharge, and follow-up left breast mass. History of bilateral surgeries. Comparison: Exams to 2018 TECHNIQUE: Diagnostic Bilateral 2D mammography and 3D (tomosynthesis)imaging were performed.Targeted ultrasound assessing sotomayor-scale and color flow performed. BREAST DENSITY:There are scattered areas of fibroglandular density. FINDINGS: Mammography: A linear radiopaque scar marker in the upper outer left breast denotesthe site of prior left breast surgery, there is stable postsurgicaldistortion seen in the upper/central outer left breast. A radiopaque marker denotes the area of palpable concern in the upperouter left breast. Subjacent to the marker, there is no suspicious adjacent findings. No suspicious findings in the subareolar left breast. No suspicious masses, calcifications or distortion in the right breast Ultrasound: Left breast: 1:00, 4 cm from the nipple, in the area of palpable concern there is an irregular hypoechoic mass measuring 11 x 5 x 8 mm. No suspicious findings in the subareolar region. Benign ducts seen within the left breast 9:00 position 6 cm from thenipple IMPRESSION: Indeterminate left breast mass at the 1:00 position in the area ofconcern. No suspicious findings to account for the patient's left nippledischarge. Benign ducts seen in the left breast 9:00 position. No evidence of malignancy in the right breast Recommendation: Ultrasound-guided biopsy of the left breast 1:00 mass recommended The results of this report will be reported to the patient by letter in layman's terms. Legally authenticated by BRADLEY LEGGETT 2024-11-29 15:14:41 ACR BI-RADS:4 - Suspicious abnormality Mammography does not detect approximately 10-15% of breast cancers. Anormal mammogram does not exclude breast cancer in a patient with palpable massor abnormal findings on physical examination. These patients may needbiopsies and when clinically indicated a biopsy should not be postponed because ofa normal mammogram. If the patient has breast surgery or biopsy, FDA/MQSA Regulatory Guidelines mandate that this facility receive pathologicresults for follow-up correlation. Electronically signed by: Marco A Garcia MD 11/29/2024 04:34 PM [facility] Dictated By: Marco A Garcia Transcribed By: Transcribed On: 11/29/2024 3:14 PM Electronically signed by: Marco A Garcia 11/29/2024 Thank you for referring NOEMI PERAZA to [facility]. Legally authenticated by BRADLEY LEGGETT 2024-11-29 15:14:41 us Stefany Davila MD IMG BI PROCEDURES Final Resul t documented in this encounter Visit Diagnoses Not on filedocumented in this encounter Additional Health Concerns Assessment Noted Time PHQ-9 Depression Total Score: 15 09/27/ 024 1:35 PM EST A fall risk assessment has been complete d for the patient 09/27/2024 1:35 PM EST A Body Mass Index follow-up plan has been documented for the patient 09/27/2024 2:04 PM EST documented as of this encounter Care Teams Director Of Psychiatry Relationship Specialty Start Date End Date Stefany Davila MD [address] [place] [id number] PCP - General 02/09/21 Chana Healy LPN VALUE-BASED TRANSFORMATION PROGRAM TCM Nurse 12/28/24 12/28/24 documented as of this encounter
--- OUTSIDE RECORDS SUMMARY | 2025-05-25 11:10 | XMS_ITS | Encounter Summary ---
Author Organization Healthcare Address [address] [place] [address] Care Team Providers Care Dining Manager Name Role Phone Stefany Davila MD Primary Care Provider [phone] Chana Healy BUSINESS SUPPORT ASSISTANT Unavailable Unavaila ble Encounter Details Date Type Department Care Team (Late st Contact Info) Description 06/16/2024 Outside Procedure External Location [address] [place] [address] Stefany Davila MD [address] [place] [address] Social History Tobacco Use Types [...] How often do you attend chur or hoahaoism services? More than 4 times per year 11/13/2023 Do you belong to any clubs o r organizations such as lutheran groups, unions, fraternal or athletic groups, or [...] Answer Date Recorded Patient Health Questionnaire-2 Score 6 06/03/2024 [facility] - Occupational Stress Questionnaire Answer Date Recorded [...] place to sleep or slept in a assisted (including now)? No 06/03/2024 PHQ-9 Answer Date Recorded Patient Health Questionnaire-9 Score 19 06/03/2024 Safety and Environment Answer Date Chilo rded [...] Procedure Name Priority Date/Time Associated Diagnosis Comments CT CHEST LIMITED HISTORICAL 06/16/2024 12:46 PM EDT documented in this encounter Results * CT Chest Limited Historical (06/16/2024 12:46 PM EDT) Anatomical Region Laterality Modality Chest Computed Tomogra phy 06/16/2024 12:4 6 PM EDT Narrative 06/18/2024 3:41 PM EDT [address] [place] [address] Name: NOEMI PERAZA Exam Date: 06/16/2024 : 1950 Age 73 years Gender: F Physician: Stefany Davila Facility: [facility] Facility HSV: Outpatient Exam: CT CHEST W/O Procedure: CT CHEST WITHOUT IV CONTRAST dated 06/16/2024 12:10 PM CDT Indication: lung nodule Technique: Multiple contiguous axial CT slices of the chest were acquired from the level of thoracic inlet to the upper abdomen without administration of IV contrast material. Also provided for interpretation are coronal and sagittal multiplanar reformats. Comparison: Correlation with CT of the abdomen and pelvis from March 21, 2024 and November 18, 2012. FINDINGS: Soft tissues Thyroid gland: The right thyroid lobe is not well seen. Correlate for history of prior thyroidectomy. Thoracic aorta and great vessels: Thoracic aorta is of normal caliber without evidence of aneurysmal dilatation. Heart: Heart is of normal size and shape without evidence of pericardial effusion. Lymphadenopathy: No evidence of significant lymphadenopathy by CT size criteria in the mediastinum, hilar regions and axillary regions bilaterally within limitations of technique and lack of IV contrast material administration. Mediastinum: In midline position. Esophagus: Esophagus appears normal. Visualized upper abdomen: Calcified splenic granuloma. Cholecystectomy. Stable 2.1 cm left adrenal gland nodule measuring less than 10 Hounsfield units in density on this noncontrast CT consistent with an adenoma. Stable 4 mm nonobstructive left renal stone Chest wall: Normal Lungs Airways: Trachea and bilateral major pulmonary bronchi are patent without evidence of endobronchial lesions. Pleura: No pleural effusion. No evidence of pneumothorax. Lungs: No consolidation or groundglass opacities. Lung nodules: 5 mm calcified nodule in the right lower lobe (series 3 image 145) unchanged since the CT of the abdomen and pelvis from November 18, 2012. Bones No evidence of suspicious lytic or sclerotic osseous lesions. IMPRESSION: 1.5 mm calcified nodule in the right liver lobe unchanged from at least 2013, likely representing a benign calcified granuloma. 2.No acute cardiopulmonary process. Legally authenticated by FORTUNATO WALKER 2024-06-16 13:10:25 3.No significant coronary calcifications. Electronically signed by:Cami Greer MD06/16/2024 05:03 PM EDT RP Dictated By: Cami Greer Transcribed By: Transcribed On: 06/16/2024 1:10 PM Electronically signed by: Cami Greer 06/16/2024 Thank you for referring NOEMI PERAZA to [facility]. Legally authenticated by FORTUNATO WALKER 2024-06-16 13:10:25 Procedure Note Provider, [facility] - 06/18/2024 [place] [address] Name: NOEMI PERAZA Exam Date: 06/16/2024 : 1950 Age 73 years Gender: F Physician: Stefany Davila Facility: [facility] Facility HSV: Outpatient Exam: CT CHEST W/O Procedure: CT CHEST WITHOUT IV CONTRAST dated 06/16/2024 12:10 PM CDT Indication: lung nodule Technique: Multiple contiguous axial CT slices of the chest were acquiredfrom the level of thoracic inlet to the upper abdomen without administration ofIV contrast material. Also provided for interpretation are coronal andsagittal multiplanar reformats. Comparison: Correlation with CT of the abdomen and pelvis from February and November 18, 2012. FINDINGS: Soft tissues Thyroid gland: The right thyroid lobe is not well seen. Correlate forhistory of prior thyroidectomy. Thoracic aorta and great vessels: Thoracic aorta is of normal caliberwithout evidence of aneurysmal dilatation. Heart: Heart is of normal size and shape without evidence of pericardial effusion. Lymphadenopathy: No evidence of significant lymphadenopathy by CT size criteria in the mediastinum, hilar regions and axillary regionsbilaterally within limitations of technique and lack of IV contrast material administration. Mediastinum: In midline position. Esophagus: Esophagus appears normal. Visualized upper abdomen: Calcified splenic granuloma. Cholecystectomy.Stable 2.1 cm left adrenal gland nodule measuring less than 10 Hounsfield unitsin density on this noncontrast CT consistent with an adenoma. Stable 4 mm nonobstructive left renal stone Chest wall: Normal Lungs Airways: Trachea and bilateral major pulmonary bronchi are patentwithout evidence of endobronchial lesions. Pleura: No pleural effusion. No evidence of pneumothorax. Lungs: No consolidation or groundglass opacities. Lung nodules: 5 mm calcified nodule in the right lower lobe (series 3image 145) unchanged since the CT of the abdomen and pelvis from October. Bones No evidence of suspicious lytic or sclerotic osseous lesions. IMPRESSION: 1.5 mm calcified nodule in the right liver lobe unchanged from at least 2012, likely representing a benign calcified granuloma. 2.No acute cardiopulmonary process. Legally authenticated by FORTUNATO WALKER 2024-06-16 13:10:25 3.No significant coronary calcifications. Electronically signed by:Cami Greer MD06/16/2024 05:03 PM EDT RP Dictated By: Cami Greer Transcribed By: Transcribed On: 06/16/2024 1:10 PM Electronically signed by: Cami Greer 06/16/2024 Thank you for referring NOEMI PERAZA to [facility]. Legally authenticated by FORTUNATO WALKER 2024-06-16 13:10:25 us Stefany Davila MD IMG CT PROCEDURES Final Resul t documented in this encounter Visit Diagnoses Not on filedocumented in this encounter Additional Health Concerns Assessment Noted Time PHQ-9 Depression Total Score: 19 024 4:11 PM EDT A fall risk assessment has been complete d for the patient 06/03/2024 4:11 PM EDT A Body Mass Index follow-up plan has been documented for the patient 06/03/2024 5:00 PM EDT documented as of this encounter Care Teams Dining Manager Relationship Specialty Start Date End Date Stefany Davila MD [address] [place] [address] PCP - General 02/09/21 Chana Healy LPN VALUE-BASED TRANSFORMATION PROGRAM TCM Nurse 12/28/24 12/28/24 documented as of this encounter
--- OUTSIDE RECORDS SUMMARY | 2025-05-25 11:10 | XMS_ITS | Encounter Summary ---
Author Organization Healthcare Address [address] [place] [address] Care Team Providers Care Asphalt Blender Name Role Phone Stefany Davila MD Primary Care Provider [phone] Chana Healy ENGINEERING AND OPERATIONS DIRECTOR Unavailable Unavaila ble Encounter Details Date Type Department Care Team (Late st Contact Info) Description 11/29/2024 Outside Procedure External Location [address] [place] [address] Stefany Davila MD [address] [place] [address] Social History Tobacco Use Types [...] How often do you attend chur or mandaeism services? More than 4 times per year 11/13/2023 Do you belong to any clubs o r organizations such as evangelical groups, unions, fraternal or athletic groups, or [...] Recorded Patient Health Questionnaire-2 Score 4 09/27/2024 [facility] - Occupational Stress Questionnaire Answer Date [...] place to sleep or slept in a prison (including now)? No 06/03/2024 PHQ-9 Answer Date [...] Procedure Name Priority Date/Time Associated Diagnosis Comments US BREAST LIMITED LEFT 11/29/2024 3:41 PM EST documented in this encounter Results * US Breast Limited Left (11/29/2024 3:41 PM EST) Anatomical Region Laterality Modality Breast Left Ultrasound 11/29/2024 3:41 PM EST Narrative 11/29/2024 4:38 PM EST [address] [address] Name: NOEMI PERAZA Exam Date: 11/29/2024 : 1950 Age 74 years Gender: F Physician: Stefany Davila Facility: [facility] Facility HSV: Outpatient Exam: BREAST [facility] Exam: 1.Bilateral Diagnostic Mammogram with 2D and [...] terms. Legally authenticated by BRADLEY LEGGETT 2024-11-29 16:09:23 ACR BI-RADS:4 - Suspicious abnormality Mammography does not detect approximately 10-15% of breast cancers. A normal mammogram does not exclude breast cancer in a patient with palpable mass or abnormal findings on physical examination. These patients may need biopsies and when clinically indicated a biopsy should not be postponed because of a normal mammogram. If the patient has breast surgery or biopsy, FDA/SA Regulatory Guidelines mandate that this facility receive pathologic results for follow-up correlation. Electronically signed by: Marco A Garcia MD 11/29/2024 04:34 PM [facility] [place] [place] Dictated By: Marco A Garcia Transcribed By: Transcribed On: 11/29/2024 4:09 PM Electronically signed by: Marco A Garcia 11/29/2024 Thank you for referring NOEMI PERAZA to [facility]. Legally authenticated by BRADLEY LEGGETT 2024-11-29 16:09:23 Procedure Note Provider, [facility] - 11/29/2024 [place] [address] Name: NOEMI PERAZA Exam Date: 11/29/2024 : 1950 Age 74 years Gender: F Physician: Stefany Davila Facility: [facility] Facility HSV: Outpatient Exam: BREAST [facility] Exam: 1.Bilateral Diagnostic Mammogram with 2D and [...] terms. Legally authenticated by BRADLEY LEGGETT 2024-11-29 16:09:23 ACR BI-RADS:4 - Suspicious abnormality Mammography does [...] Marco A Garcia MD 11/29/2024 04:34 PM [facility] Dictated By: Marco A Garcia Transcribed By: Transcribed On: 11/29/2024 4:09 PM Electronically signed by: Marco A Garcia 11/29/2024 Thank you for referring NOEMI PERAZA to [facility]. Legally authenticated by BRADLEY LEGGETT 2024-11-29 16:09:23 us Stefany Davila MD IMG BI PROCEDURES Final Resul t documented in this encounter Visit Diagnoses Not on filedocumented in this encounter Additional Health Concerns Assessment Noted Time PHQ-9 Depression Total Score: 15 09/27/2 024 1:35 PM EST A fall risk assessment has been complete d for the patient 09/27/2024 1:35 PM EST A Body Mass Index follow-up plan has been documented for the patient 09/27/2024 2:04 PM EST documented as of this encounter Care Teams Asphalt Blender Relationship Specialty Start Date End Date Stefany Davila MD [address] [place] [phone] PCP - General 02/09/21 Chana Healy LPN VALUE-BASED TRANSFORMATION PROGRAM TCM Nurse 12/28/24 12/28/24 documented as of this encounter
--- OUTSIDE RECORDS SUMMARY | 2025-05-25 11:10 | XMS_ITS | Encounter Summary ---
Author Organization Healthcare Address [address] [place] [address] Care Team Providers Care Makeup Editor Name Role Phone Stefany Davila MD Primary Care Provider [phone] Encounter Details Date Type Department Care Team (Late st Contact Info) Description 05/16/2025 Orders Only [facility] Pending Sale To [facility] [address] [place] [address] Adair Herrera MD [address] [facility] [address] [place] [address] Social History Tobacco Use Types Packs/Day Years [...] 11/13/2023 How often do you attend chur ch or temple services? More than 4 times per year 11/13/2023 Do you belong to any clubs o r organizations such as latter day groups, unions, fraternal or athletic groups, or [...] Recorded Patient Health Questionnaire-2 Score 4 09/27/2024 [facility] - Occupational Stress Questionnaire Answer Date [...] documented as of this encounter Visit Diagnoses Not on filedocumented in this encounter Additional Health Concerns Assessment Noted Time PHQ-9 Depression Total Score: 15 024 1:35 PM EST A fall risk assessment has been complete d for the patient 12/29/2024 12:59 PM EDT A Body Mass Index follow-up plan has been documented for the patient 12/29/2024 1:58 PM EDT documented as of this encounter Care Teams Makeup Editor Relationship Specialty Start Date End Date Stefany Davila MD [facility] [place] [address] PCP - General 02/09/21 documented as of this encounter
--- OUTSIDE RECORDS SUMMARY | 2025-05-25 11:10 | XMS_ITS | Encounter Summary ---
Author Organization Healthcare Address [address] [place] [address] Care Team Providers Care Workers' Compensation Claims Supervisor Name Role Phone Stefany Davila MD Primary Care Provider [phone] Milly Espinoza DRILLING ENGINEER Unavailable Unavail able Aletha Schafer Unavailable Unavailabl e Chana Healy DRILLING ENGINEER Unavailable Unavaila ble Reason for Visit * Reason Comments Med Refill Encounter Details Date Type Department Care Team (Late st Contact Info) Description 08/15/2023 Refill [facility] [address] [place] [address] Stefany Davila MD [address] [place] [address] Social History Tobacco Use Types Packs/Day Years Used Date Smoking Tobacco: Former Cigarettes 0.5 20 1 - 2016 Smokeless Tobacco: Never PHQ-2 Answer Date Recorded Patient Health Questionnaire-2 Score 6 07/10/2023 PHQ-9 Answer Date Recorded Patient Health Questionnaire-9 Score 20 07/10/2023 Comments No Sex and Gender Information Value Date Recorded Sex Assigned at Not on file Legal Sex Female 6:17 PM EDT Gender Identity Not on file Sexual Orientation Not on file documented as of this encounter Miscellaneous Notes * Telephone Encounter - Shruthi Mcguire - 08/19/2023 10:10 AM EST Attempted to call no answer, left VM * Telephone Encounter - Shyann Valencia - 08/18/2023 2:25 PM EST Left message x2 * Telephone Encounter - Shruthi Mcguire - 08/18/2023 9:41 AM EST Attempted to call no answer, left VM documented in this encounter Plan of Treatment Not on file documented as of this encounter Visit Diagnoses Not on filedocumented in this encounter Additional Health Concerns Assessment Noted Time PHQ-9 Depression Total Score: 20 023 1:44 PM EDT A fall risk assessment has been complete d for the patient 07/10/2023 1:44 PM EDT A Body Mass Index follow-up plan has been documented for the patient 07/10/2023 2:12 PM EDT documented as of this encounter Care Teams Workers' Compensation Claims Supervisor Relationship Specialty Start Date End Date Stefany Davila MD [address] [place] [phone] PCP - General 02/09/21 Milly Espinoza LPN VALUE-BASED [place] [address] TCM Nurse 11/13/23 12/15/23 Aletha Schafer TCM Nurse 11/13/23 11/26/23 Chana Healy LPN VALUE-BASED TRANSFORMATION PROGRAM TCM Nurse 12/28/24 12/28/24 documented as of this encounter
--- OUTSIDE RECORDS SUMMARY | 2025-05-25 11:10 | XMS_ITS | Encounter Summary ---
Author Organization Healthcare Address [address] [place] [address] Care Team Providers Care Endoscopy Support Specialist Name Role Phone Stefany Davila MD Primary Care Provider [phone] Reason for Visit * Reason Onset Date Comments Med Refill 04/05/2025 Encounter Details Date Type Department Care Team (Late st Contact Info) Description 04/05/2025 Refill [facility] [address] [place] [address] Stefany Davila MD [address] [place] [address] Controlled type 2 diabetes mellitus without complication, with long-term current use of insulin Social History Tobacco Use Types Packs/Day Years Used Date Smoking Tobacco: Former Cigarettes 0.5 20 1 7 - 2017 Passive Smoke Exposure: Never Smokeless [...] week 11/13/2023 How often do you attend [facility] or yarsanism services? More than 4 times per year 11/13/2023 Do you belong to any clubs o r organizations such as temple groups, unions, fraternal or athletic groups, or [...] Recorded Patient Health Questionnaire-2 Score 4 09/27/2024 [facility] - Occupational Stress Questionnaire Answer Date Recorded [...] place to sleep or slept in a fpc (including now)? No 06/03/2024 PHQ-9 Answer Date [...] encounter Miscellaneous Notes * Telephone Encounter - Abdirahman Shaw PharmD - 04/06/2025 4:09 PM EDT 1 medication(s) has been approved per protocol. documented in this encounter Plan of Treatment Not on file documented as of this encounter Visit Diagnoses Diagnosis Controlled type 2 diabetes mellitus without complication, with long-term current use of insulin documented in this encounter Additional Health Concerns Assessment Noted Time PHQ-9 Depression Total Score: 15 09/27/ 024 1:35 PM EST A fall risk assessment has been complete d for the patient 12/29/2024 12:59 PM EDT A Body Mass Index follow-up plan has been documented for the patient 12/29/2024 1:58 PM EDT documented as of this encounter Care Teams Endoscopy Support Specialist Relationship Specialty Start Date End Date Stefany Davila MD [address] [place] [address] PCP - General 02/09/21 documented as of this encounter
--- OUTSIDE RECORDS SUMMARY | 2025-05-25 11:10 | XMS_ITS | Encounter Summary ---
Author Organization Healthcare Address [address] [place] [address] Care Team Providers Care Plow Shaker Name Role Phone Stefany Davila MD Primary Care Provider [phone] Encounter Details Date Type Department Care Team (Late st Contact Info) Description 05/16/2025 Orders Only [facility] [address] [place] [address] Adair Herrera MD [address] [facility] [place] [address] [place] [address] Controlled type 2 diabetes mellitus with diabetic polyneuropathy, with long-term current use of insulin ([facility]) Social History Tobacco Use Types Packs/Day Years [...] week 11/13/2023 How often do you attend [facility] or baptism services? More than 4 [...] Recorded Patient Health Questionnaire-2 Score 4 09/27/2024 [facility] - Occupational Stress Questionnaire Answer Date [...] place to sleep or slept in a retirement (including now)? No 06/03/2024 PHQ-9 Answer Date [...] long-term current use of insulin ([facility]) documented in this encounter Additional Health Concerns Assessment Noted Time PHQ-9 Depression Total Score: 15 024 1:35 PM EST A fall risk assessment has been complete d for the patient 12/29/2024 12:59 PM EDT A Body Mass Index follow-up plan has been documented for the patient 12/29/2024 1:58 PM EDT documented as of this encounter Care Teams Plow Shaker Relationship Specialty Start Date End Date Stefany Davila MD [address] [place] [phone] PCP - General 02/09/21 documented as of this encounter
--- OUTSIDE RECORDS SUMMARY | 2025-05-25 11:11 | XMS_ITS | Encounter Summary ---
Author Organization Healthcare Address [address] [place] [address] Care Team Providers Care Deep Fryer Assembler Name Role Phone Stefany Davila MD Primary Care Provider [phone] Milly Espinoza TABLET COATER Unavailable Unavail able Aletha Schafer Unavailable Unavailabl e Chana Healy TABLET COATER Unavailable Unavaila ble Encounter Details Date Type Department Care Team (Late st Contact Info) Description 11/03/2023 Orders Only External Location [address] [place] [address] Provider, External Social History Tobacco Use Types Packs/Day Years Used Date Smoking Tobacco: Former Cigarettes 0.5 20 1 2016 Smokeless Tobacco: Never PHQ-2 Answer Date Recorded Patient Health Questionnaire-2 Score 0 08/20/2023 PHQ-9 Answer Date Recorded Patient Health Questionnaire-9 Score 20 07/10/2023 PHQ-2A Answer Date Recorded Patient Health Questionnaire-2 [...] Priority Date/Time Associated Diagnosis Comments US BREAST OUTSIDE IMAGES 11/03/2023 2:16 PM EST documented in this encounter Results * US BREAST OUTSIDE IMAGES (11/03/2023 2:16 PM EST) Anatomical Region Laterality Modality Breast Mammography 11/03/2023 2:16 PM EST us External Provider IMG BI PROCEDURES Final Result documented in this encounter Visit Diagnoses Not on filedocumented in this encounter Additional Health Concerns Assessment Noted Time PHQ-9 Depression Total Score: 20 023 1:44 PM EDT A fall risk assessment has been complete d for the patient 08/20/2023 10:44 AM EST A Body Mass Index follow-up plan has been documented for the patient 09/30/2023 1:01 PM EST documented as of this encounter Care Teams Deep Fryer Assembler Relationship Specialty Start Date End Date Stefany Davila MD [address] [place] [address] PCP - General 02/09/21 Milly Espinoza LPN [employer] [place] [address] TCM Nurse 11/13/23 12/15/23 Aletha Schafer TCM Nurse 11/13/23 11/26/23 Chana Healy LPN VALUE-BASED TRANSFORMATION PROGRAM TCM Nurse 12/28/24 12/28/24 documented as of this encounter
--- OUTSIDE RECORDS SUMMARY | 2025-05-25 11:11 | XMS_ITS | Encounter Summary ---
Author Organization Healthcare Address [address] [place] [address] Care Team Providers Care Baggage Handler Name Role Phone Stefany Davila MD Primary Care Provider [phone] Encounter Details Date Type Department Care Team (Late st Contact Info) Description 01/24/2025 Outside Procedure External Location [address] [place] [address] Dennis Mcclain MD [address] [place] [address] Social History Tobacco Use Types Packs/Day Years Used Date Smoking Tobacco: Former Cigarettes 0.5 2016 Passive Smoke Exposure: Never Smokeless Tobacco: [...] How often do you attend [facility] or evangelical services? More than 4 times per year 11/13/2023 Do you belong to any clubs o r organizations such as religious groups, unions, fraternal or athletic groups, or [...] Recorded Patient Health Questionnaire-2 Score 4 09/27/2024 [facility] - Occupational Stress Questionnaire Answer Date [...] Procedure Name Priority Date/Time Associated Diagnosis Comments ECHO, ADULT TRANSTHORACIC COMPLETE W/ COLOR AND DOPPLER 01/24/2025 2:31 PM EDT documented in this encounter Results * Echo, Adult Transthoracic Complete w/ Color and Doppler (01/24/2025 2:31 PM EDT) Anatomical Region Laterality Modality Ultrasound 01/24/2025 2:31 PM EDT Narrative 01/31/2025 12:56 PM EDT [address] [address] Name: NOEMI PERAZA Exam Date: 01/24/2025 : 1950 Age 74 years Gender: F Physician: DENNIS MCCLAIN [facility] Facility HSV: Outpatient Exam: ECHO W SPEC COLOR FLOW Reason for Study: Shortness of air SUMMARY Normal LV size with normal function. The ejection fraction is 60-65%. Normal diastolic function. There is mild aortic regurgitation. There is mild tricuspid regurgitation. Normal PA pressure (20 mmHg). INTERPRETATION DETAIL Good quality study. Left ventricle: The left ventricle is normal in size with normal systolic function. The ejection fraction is 60-65%. There is normal LV wall thickness. LV geometry is normal. The left ventricular wall motion is normal. Mitral filling indicates Normal diastolic function. Left atrium: The left atrium is normal. LA volume: 54.9mL, LA volume index: 27.3mL/mA . Right ventricle: The right ventricle is normal in size with normal function. Right atrium: The right atrium is normal. Mitral valve: The mitral valve is normal. There is no mitral stenosis. There is no mitral regurgitation. Aortic valve: The aortic valve is trivially calcified. There is mild aortic stenosis with a valve area of 1.82 print journalist (Peak grad=9mmHg, Mean grad=5mmHg, LVOT monica=1.90cm, LVOT TVI=22.5cm, Ao TVI=35.1cm). The dimensionless index is 0.64. AV peak gpobikyj=764tr/sec. There is mild aortic regurgitation. (AR Decel= 1.280 m/secA ). AR pressure half uppt=525zj. Tricuspid valve: The tricuspid valve is normal. There is mild tricuspid regurgitation. PASP= 20 mmHg, RAP=7mmHg. Pulmonic valve: The pulmonic valve is normal. Pericardium: The pericardium is normal. Pulmonary artery: The pulmonary artery is normal. Interatrial septum: The interatrial septum is normal. Aorta: The aorta is normal. The aortic root is normal. Aortic dimensions - Ao M-mode= 3.10cm, Ascending=3.00cm. Vena Cava: The inferior vena cava is normal. MEASUREMENTS Left Ventricle IVSd: 0.77cm (0.6-1.1cm) PWd: 0.72cm (0.6-1.1cm) Mass Yue: 106g LVMI: 53g/mA (>50-95g/m) LVIDd: 4.55cm (3.7-5.6 cm) LVIDdI: 2.26cm/m2 LVIDs: 3.09cm (1.8-4.2 cm) LVIDsI: 1.54cm/m2 RWT: 0.32 (<0.42) E to A: 0.89 (0.6-2) E-e prime med: 11.17 E-e prime lat: 7.44 Decel: 161.00ms (168-232ms) Right Ventricle Mid RV Monica: 2.9cm (2.7-3.3cm) Legally authenticated by JUAN JOSÉ Sunshine 2025-01-31 12:54:35 Max Valve Velocities AV peak vernon: 152cm/sec LVOT: 114.00cm/sec Pulmonary RAP: 7mmHg PASP: 20mmHg Atria LA AP: 4.4cm LA vol: 54.9mL JOAN: 27.3mL/mA (16-28ml/m2) Dennis Mcclain MD Dictated By: DENNIS MCCLAIN Transcribed By: Transcribed On: 01/31/2025 12:54 PM Electronically signed by: DENNIS MCCLAIN 01/31/2025 Thank you for referring NOEMI PERAZA to [facility]. Legally authenticated by JUAN JOSÉ Sunshine 2025-01-31 12:54:35 Procedure Note Provider, Generic [place] - 01/31/[address] [address] Name: NOEMI PERAZA Exam Date: 01/24/2025 : 1950 Age 74 years Gender: F Physician: DENNIS MCCLAIN Facility: [facility] Facility HSV: Outpatient Exam: ECHO W SPEC COLOR FLOW Reason for Study: Shortness of air SUMMARY Normal LV size with normal function. The ejection fraction is 60-65%. Normal diastolic function. There is mild aortic regurgitation. There is mild tricuspid regurgitation. Normal PA pressure (20 mmHg). INTERPRETATION DETAIL Good quality study. Left ventricle: The left ventricle is normal in size with normal systolic function. The ejection fraction is 60-65%. There is normal LV wall thickness. LV geometry is normal. The left ventricular wall motion is normal. Mitral filling indicates Normal diastolic function. Left atrium: The left atrium is normal. LA volume: 54.9mL, LA volume index: 27.3mL/mA . Right ventricle: The right ventricle is normal in size with normal function. Right atrium: The right atrium is normal. Mitral valve: The mitral valve is normal. There is no mitral stenosis. There is no mitral regurgitation. Aortic valve: The aortic valve is trivially calcified. There is mild aortic stenosis with a valve area of 1.82 print journalist (Peak grad=9mmHg, Mean grad=5mmHg, LVOT monica=1.90cm, LVOT TVI=22.5cm, Ao TVI=35.1cm). The dimensionless index is 0.64. AV peak swntsaky=447kh/sec. There is mild aortic regurgitation. (AR Decel= 1.280 m/secA ). AR pressure half rcmv=021re. Tricuspid valve: The tricuspid valve is normal. There is mild tricuspid regurgitation. PASP= 20 mmHg, RAP=7mmHg. Pulmonic valve: The pulmonic valve is normal. Pericardium: The pericardium is normal. Pulmonary artery: The pulmonary artery is normal. Interatrial septum: The interatrial septum is normal. Aorta: The aorta is normal. The aortic root is normal. Aortic dimensions - Ao M-mode= 3.10cm, Ascending=3.00cm. Vena Cava: The inferior vena cava is normal. MEASUREMENTS Left Ventricle IVSd: 0.77cm (0.6-1.1cm) PWd: 0.72cm (0.6-1.1cm) Mass Yue: 106g LVMI: 53g/mA (>50-95g/m) LVIDd: 4.55cm (3.7-5.6 cm) LVIDdI: 2.26cm/m2 LVIDs: 3.09cm (1.8-4.2 cm) LVIDsI: 1.54cm/m2 RWT: 0.32 (<0.42) E to A: 0.89 (0.6-2) E-e prime med: 11.17 E-e prime lat: 7.44 Decel: 161.00ms (168-232ms) Right Ventricle Mid RV Monica: 2.9cm (2.7-3.3cm) Legally authenticated by JUAN JOSÉ Sunshine 2025-01-31 12:54:35 Max Valve Velocities AV peak vernon: 152cm/sec LVOT: 114.00cm/sec Pulmonary RAP: 7mmHg PASP: 20mmHg Atria LA AP: 4.4cm LA vol: 54.9mL JOAN: 27.3mL/mA (16-28ml/m2) Dennis Mcclain MD Dictated By: DENNIS MCCLAIN Transcribed By: Transcribed On: 01/31/2025 12:54 PM Electronically signed by: DENNIS MCCLAIN 01/31/2025 Thank you for referring NOEMI PERAZA to [facility]. Legally authenticated by JUAN JOSÉ Sunshine 2025-01-31 12:54:35 Dennis Mcclain MD CV ECHO PROCEDURES Final Resu lt documented in this encounter Visit Diagnoses Not [...] documented as of this encounter Care Teams Baggage Handler Relationship Specialty Start Date End Date Stefany Davila MD [address] [place] [address] PCP - General 02/09/21 documented as of this encounter
--- OUTSIDE RECORDS SUMMARY | 2025-05-25 11:11 | XMS_ITS | Encounter Summary ---
Author Organization Healthcare Address [address] [place] [address] Care Team Providers Care Retail Shift Supervisor Name Role Phone Stefany Davila MD Primary Care Provider [phone] Milly Espinoza COMMUNITY HEALTH REPRESENTATIVE Unavailable Unavail able Aletha Schafer Unavailable Unavailabl e Chana Healy COMMUNITY HEALTH REPRESENTATIVE Unavailable Unavaila ble Encounter Details Date Type Department Care Team (Late st Contact Info) Description 11/03/2023 Outside Procedure External Location [address] [place] [address] Stefany Davila MD [address] [place] [address] Social History Tobacco Use Types Packs/Day [...] Associated Diagnosis Comments US BREAST LIMITED LEFT 11/03/2023 2:09 PM EST documented in this encounter Results * US Breast Limited Left (11/03/2023 2:09 PM EST) Anatomical Region Laterality Modality Breast Left Ultrasound 11/03/2023 2:09 PM EST Narrative 11/03/2023 3:36 PM EST [address] [address] Name: NOEMI PERAZA Exam Date: 11/03/2023 : 1950 Age 73 Gender: F Physician: Stefany Davila Facility: [facility] Facility HSV: Outpatient Exam: US BREAST LTD LT MAMMOGRAM DIAGNOSTIC BILATERAL TECHNIQUE: Standard digital 2-D views with 3-D tomosynthesis HISTORY: Bloody left nipple discharge COMPARISON: February 02, 2020, September 17, 2018 DENSITY: There are scattered areas of fibroglandular density MAMMOGRAM FINDINGS: Benign calcifications. Stable scattered bilateral asymmetries. No definite new suspicious mass, suspicious calcifications or architectural distortion is present. ULTRASOUND FINDINGS: Multiple grayscale and color Doppler ultrasound imaging of the left breast was performed. Prominent, mildly dilated left breast duct at the 9:00 axis measuring up to 2 mm in caliber. No definite suspicious mass. IMPRESSION: Mildly dilated left breast duct at the 9:00 axis is probably benign. BI-RADS 3: Probably benign finding RECOMMENDATION: Follow-up diagnostic mammogram and ultrasound of the left breast in 6 months. Routine annual screening mammography for the right breast. CAD was utilized during interpretation. The patient will be sent a letter from the mammography department with their mammography results. Dictated By: Jarvis Quevedo Transcribed By: Jarvis Jack Transcribed On: 11/03/2023 3:18 PM Electronically signed by: Jarvis Quevedo 11/03/2023 Thank you for referring NOEMI PERAZA to [facility]. Legally authenticated by LUCITA FERREIRA 2023-11-03 15:18:28 Procedure Note Provider, [facility] - 11/03/[address] [address] Name: NOEMI PERAZA Exam Date: 11/03/2023 : 1950 Age 73 Gender: F Physician: Stefany Davila Facility: [facility] Facility HSV: Outpatient Exam: BREAST [facility] MAMMOGRAM DIAGNOSTIC BILATERAL TECHNIQUE: Standard digital 2-D views with 3-D tomosynthesis HISTORY: Bloody left nipple discharge COMPARISON: February 02, 2020, September 17, 2018 DENSITY: There are scattered areas of fibroglandular density MAMMOGRAM FINDINGS: Benign calcifications. Stable scattered bilateral asymmetries. No definite new suspicious mass, suspicious calcificationsor architectural distortion is present. ULTRASOUND FINDINGS: Multiple grayscale and color Doppler ultrasound imaging of the left breastwas performed. Prominent, mildly dilated left breast duct at the 9:00 axis measuring upto 2 mm in caliber. No definite suspicious mass. IMPRESSION: Mildly dilated left breast duct at the 9:00 axis is probably benign. BI-RADS 3: Probably benign finding RECOMMENDATION: Follow-up diagnostic mammogram and ultrasound of theleft breast in 6 months. Routine annual screening mammography for the rightbreast. CAD was utilized during interpretation. The patient will be sent a letter from the mammography department withtheir mammography results. Dictated By: Jarvis Quevedo Transcribed By: Jarvis Jack Transcribed On: 11/03/2023 3:18 PM Electronically signed by: Jarvis Quevedo 11/03/2023 Thank you for referring NOEMI PERAZA to [facility]. Legally authenticated by LUCITA FERREIRA 2023-11-03 15:18:28 us Stefany Davila MD IMG BI PROCEDURES [...] documented as of this encounter Care Teams Retail Shift Supervisor Relationship Specialty Start Date End Date Stefany Davila MD [address] [place] [phone] PCP - General 02/09/21 Milly Espinoza LPN [employer] [address] TCM Nurse 11/13/23 12/15/23 Aletha Schafer TCM Nurse 11/13/23 11/26/23 Chana Healy LPN VALUE-BASED TRANSFORMATION PROGRAM TCM Nurse 12/28/24 12/28/24 documented as of this encounter
--- OUTSIDE RECORDS SUMMARY | 2025-05-25 11:11 | XMS_ITS | Encounter Summary ---
Author Organization Healthcare Address [address] [place] [address] Care Team Providers Care Bag Turner Name Role Phone Stefany Davila MD Primary Care Provider [phone] Cindy Terry ABORIGINAL LIAISON OFFICER Unavailable Unavailab Milly Fish ABORIGINAL LIAISON OFFICER Unavailable Unavail able Milly Espinoza ABORIGINAL LIAISON OFFICER Unavailable Unavail able Aletha Schafer Unavailable Unavailabl Chana Cleary ABORIGINAL LIAISON OFFICER Unavailable Unavaila ble Encounter Details Date Type Department Care Team (Late st Contact Info) Description 09/17/2018 Orders Only External Location [address] [place] [address] Provider, External Social History Tobacco Use Types Packs/Day Years Used Date Smoking Tobacco: Never Assessed Comments Unknown Sex and Gender Information Value Date Recorded Sex Assigned at Not on file Legal Sex Female 6:17 PM EDT Gender Identity Not on file Sexual Orientation Not on file documented as of this encounter Plan of Treatment Not on file documented as of this encounter Procedures Procedure Name Priority Date/Time Associated Diagnosis Comments US BREAST OUTSIDE IMAGES 09/17/2018 3:45 PM EST documented in this encounter Results * US BREAST OUTSIDE IMAGES (09/17/2018 3:45 PM EST) Anatomical Region Laterality Modality Breast Mammography 09/17/2018 3:45 PM EST us External Provider IMG BI PROCEDURES Final Result documented in this encounter Visit Diagnoses Not on filedocumented in this encounter Additional Health Concerns Infection Onset Date Last Indicated Resolved Time COVID-19 Rule-Out 08/27/2022 08/27/2022 08/27/2022 7:57 PM EST Influenza 08/27/2022 08/27/2022 09/24/2022 5:23 AM EST documented as of this encounter Care Teams Bag Turner Relationship Specialty Start Date End Date Stefany Davila MD [address] [place] [phone] PCP - General 02/09/21 Cindy Terry LPN VALUE-BASED TRANSFORMATION PROGRAM Licensed Practical Nurse 03/10/23 03/13/23 Milly Espinoza ABORIGINAL LIAISON OFFICER VALUE-[employer] [place] [address] TCM Nurse 08/05/23 08/07/23 Milly Espinoza ABORIGINAL LIAISON OFFICER VALUE-[employer] [place] [address] TCM Nurse 11/13/23 12/15/23 Aletha Schafer TCM Nurse 11/13/23 11/26/23 Chana Healy ABORIGINAL LIAISON OFFICER VALUE-BASED TRANSFORMATION PROGRAM TCM Nurse 12/28/24 12/28/24 documented as of this encounter
--- OUTSIDE RECORDS SUMMARY | 2025-05-25 11:11 | XMS_ITS | Encounter Summary ---
Author Organization Healthcare Address [address] [place] [address] Care Team Providers Care Hanger Off Name Role Phone Stefany Davila MD Primary Care Provider [phone] Cindy Terry MICROFILM MOUNTER Unavailable Unavailab Milly Fish MICROFILM MOUNTER Unavailable Unavail able Milly Espinoza MICROFILM MOUNTER Unavailable Unavail able Aletha Schafer Unavailable Unavailabl Chana Cleary MICROFILM MOUNTER Unavailable Unavaila ble Encounter Details Date Type Department Care Team (Late st Contact Info) Description 09/17/2018 Orders Only External Location [address] [place] [address] Provider, External Social History Tobacco Use Types [...] Name Priority Date/Time Associated Diagnosis Comments MAMMOGRAPHY OUTSIDE IMAGES UPLOAD 09/17/2018 3:04 PM EST documented in this encounter Results * Mammography Outside Images Upload (09/17/2018 3:04 PM EST) Anatomical Region Laterality Modality Mammography 09/17/2018 3:04 PM EST us External Provider IMG BI PROCEDURES Final Result documented in this encounter Visit Diagnoses Not on filedocumented in this encounter Additional Health Concerns Infection Onset Date Last Indicated Resolved Time COVID-19 Rule-Out 08/27/2022 08/27/2022 08/27/2022 7:57 PM EST Influenza 08/27/2022 08/27/2022 09/24/2022 5:23 AM EST documented as of this encounter Care Teams Hanger Off Relationship Specialty Start Date End Date Stefany Davila MD [address] [place] [phone] PCP - General 02/09/21 Cindy Terry MICROFILM MOUNTER VALUE-BASED TRANSFORMATION PROGRAM Licensed Practical Nurse 03/10/23 03/13/23 Milly Espinoza MICROFILM MOUNTER VALUE-[place] [address] TCM Nurse 08/05/23 08/07/23 Milly Espinoza MICROFILM MOUNTER VALUE-[employer]ED [place] [address] TCM Nurse 11/13/23 12/15/23 Aletha Schafer TCM Nurse 11/13/23 11/26/23 Chana Healy MICROFILM MOUNTER VALUE-BASED TRANSFORMATION PROGRAM TCM Nurse 12/28/24 12/28/24 documented as of this encounter
--- OUTSIDE RECORDS SUMMARY | 2025-05-25 11:11 | XMS_ITS | Encounter Summary ---
Author Organization Healthcare Address [address] [place] [address] Care Team Providers Care Electrical Test Technician Name Role Phone Stefany Davila MD Primary Care Provider [phone] Cindy Terry POLICE CAPTAIN PRECINCT Unavailable Unavailab Milly Fish POLICE CAPTAIN PRECINCT Unavailable Unavail able Milly Espinoza POLICE CAPTAIN PRECINCT Unavailable Unavail able Aletha Schafer Unavailable Unavailabl Chana Cleary POLICE CAPTAIN PRECINCT Unavailable Unavaila ble Encounter Details Date Type Department Care Team (Late st Contact Info) Description 05/15/2017 Orders Only External Location [address] [place] [phone] Provider, External Social History Tobacco Use Types [...] Associated Diagnosis Comments MAMMOGRAPHY OUTSIDE IMAGES UPLOAD 05/15/2017 11:01 AM EDT documented in this encounter Results * Mammography Outside Images Upload (05/15/2017 11:01 AM EDT) Anatomical Region Laterality Modality Mammography 05/15/2017 11:0 1 AM EDT us External Provider IMG BI PROCEDURES Final Result documented in this encounter Visit Diagnoses Not on filedocumented in this encounter Additional Health Concerns Infection Onset Date Last Indicated Resolved Time COVID-19 Rule-Out 08/27/2022 08/27/2022 08/27/2022 7:57 PM EST Influenza 08/27/2022 08/27/2022 09/24/2022 5:23 AM EST documented as of this encounter Care Teams Electrical Test Technician Relationship Specialty Start Date End Date Stefany Davila MD [address] [place] [phone] PCP - General 02/09/21 Cindy Terry POLICE CAPTAIN PRECINCT VALUE-BASED TRANSFORMATION PROGRAM Licensed Practical Nurse 03/10/23 03/13/23 Milly Espinoza POLICE CAPTAIN PRECINCT VALUE-BASED [place] [address] TCM Nurse 08/05/23 08/07/23 Milly Espinoza POLICE CAPTAIN PRECINCT VALUE-BASED [place] [address] TCM Nurse 11/13/23 12/15/23 Aletha Schafer TCM Nurse 11/13/23 11/26/23 Chana Healy POLICE CAPTAIN PRECINCT VALUE-BASED TRANSFORMATION PROGRAM TCM Nurse 12/28/24 12/28/24 documented as of this encounter
--- OUTSIDE RECORDS SUMMARY | 2025-05-25 11:11 | XMS_ITS | Encounter Summary ---
Author Organization Healthcare Address [address] [place] [address] Care Team Providers Care Metal Slitter Name Role Phone Stefany Davila MD Primary Care Provider [phone] Milly Espinoza RESERVATIONS SALES SUPERVISOR Unavailable Unavail able Aletha Schafer Unavailable Unavailabl e Chana Healy RESERVATIONS SALES SUPERVISOR Unavailable Unavaila ble Encounter Details Date Type Department Care Team (Late st Contact Info) Description 11/03/2023 Outside Procedure External Location [address] [place] [address] Stefany Davila MD [address] [place] [phone] Social History Tobacco Use Types Packs/Day Years Used Date Smoking Tobacco: Former Cigarettes 0.5 20 1 7 - 2016 Smokeless Tobacco: Never PHQ-2 Answer [...] Comments MAMMOGRAPHY BREAST POST BIOPSY CLIP BILATERAL 11/03/2023 1:27 PM EST documented in this encounter Results * Mammography Breast Post Biopsy Clip Bilateral (11/03/2023 1:27 PM EST) Anatomical Region Laterality Modality Breast Bilateral Mammography 11/03/2023 1:27 PM EST Narrative 11/03/2023 3:36 PM EST [address] [address] Name: NOEMI PERAZA Exam Date: 11/03/2023 : 1950 Age 73 Gender: F Physician: Stefany Davila Facility: [facility] Facility HSV: Outpatient Exam: MICHAEL DIAG MAMMO W/CAD BILAT MAMMOGRAM DIAGNOSTIC BILATERAL TECHNIQUE: Standard digital 2-D [...] Thank you for referring NOEMI PERAZA to [facility]. Legally authenticated by LUCITA FERREIRA 2023-11-03 15:18:00 Procedure Note Provider, [facility] - 11/03/2023 [address] [place] [address] Name: NOEMI PERAZA Exam Date: 11/03/2023 : 1950 Age 73 Gender: F Physician: Stefany Davila Facility: [facility] Facility HSV: Outpatient Exam: MICHAEL DIAG MAMMO W/CAD BILAT MAMMOGRAM DIAGNOSTIC BILATERAL TECHNIQUE: Standard digital 2-D [...] Thank you for referring NOEMI PERAZA to [facility]. Legally authenticated by LUCITA FERREIRA 2023-11-03 15:18:00 us Stefany Davila MD IMG BI PROCEDURES [...] documented as of this encounter Care Teams Metal Slitter Relationship Specialty Start Date End Date Stefany Davila MD [address] [place] [phone] PCP - General 02/09/21 Milly Espinoza LPN VALUE-[employer]ED [place] [address] TCM Nurse 11/13/23 12/15/23 Aletha Schafer TCM Nurse 11/13/23 11/26/23 Chana Healy LPN VALUE-BASED TRANSFORMATION PROGRAM TCM Nurse 12/28/24 12/28/24 documented as of this encounter
--- OUTSIDE RECORDS SUMMARY | 2025-05-25 11:11 | XMS_ITS | Encounter Summary ---
Author Organization Healthcare Address [address] [place] [address] Care Team Providers Care Curriculum Facilitator Name Role Phone Stefany Davila MD Primary Care Provider [phone] Cindy Terry ASSISTANT MEN'S LACROSSE COACH Unavailable Unavailab Milly Fish ASSISTANT MEN'S LACROSSE COACH Unavailable Unavail able Milly Espinoza ASSISTANT MEN'S LACROSSE COACH Unavailable Unavail able Aletha Schafer Unavailable Unavailabl Chana Cleary ASSISTANT MEN'S LACROSSE COACH Unavailable Unavaila ble Encounter Details Date Type Department Care Team (Late st Contact Info) Description 02/02/2020 Orders Only External Location [address] [place] [phone] Provider, External Social History Tobacco Use Types [...] Associated Diagnosis Comments MAMMOGRAPHY OUTSIDE IMAGES UPLOAD 02/02/2020 8:43 AM EDT documented in this encounter Results * Mammography Outside Images Upload (02/02/2020 8:43 AM EDT) Anatomical Region Laterality Modality Mammography 02/02/2020 8:43 AM EDT us External Provider IMG BI PROCEDURES Final Result documented in this encounter Visit Diagnoses Not on filedocumented in this encounter Additional Health Concerns Infection Onset Date Last Indicated Resolved Time COVID-19 Rule-Out 08/27/2022 08/27/2022 08/27/2022 7:57 PM EST Influenza 08/27/2022 08/27/2022 09/24/2022 5:23 AM EST documented as of this encounter Care Teams Curriculum Facilitator Relationship Specialty Start Date End Date Stefany Davila MD [address] [place] [phone] PCP - General 02/09/21 Cindy Terry ASSISTANT MEN'S LACROSSE COACH VALUE-BASED TRANSFORMATION PROGRAM Licensed Practical Nurse 03/10/23 03/13/23 Milly Espinoza ASSISTANT MEN'S LACROSSE COACH VALUE-[place] [address] TCM Nurse 08/05/23 08/07/23 Milly Espinoza ASSISTANT MEN'S LACROSSE COACH VALUE-[place] [address] TCM Nurse 11/13/23 12/15/23 Aletha Schafer TCM Nurse 11/13/23 11/26/23 Chana Healy ASSISTANT MEN'S LACROSSE COACH VALUE-BASED TRANSFORMATION PROGRAM TCM Nurse 12/28/24 12/28/24 documented as of this encounter
--- OUTSIDE RECORDS SUMMARY | 2025-05-25 11:11 | XMS_ITS | Encounter Summary ---
Author Organization Healthcare Address [address] [place] [address] Care Team Providers Care Reproducer Name Role Phone Stefany Davila MD Primary Care Provider [phone] Cindy Terry RELAY SHOP SUPERVISOR Unavailable Unavailab Milly Fish RELAY SHOP SUPERVISOR Unavailable Unavail able Milly Espinoza RELAY SHOP SUPERVISOR Unavailable Unavail able Aletha Schafer Unavailable Unavailabl Chana Cleary RELAY SHOP SUPERVISOR Unavailable Unavaila ble Encounter Details Date Type Department Care Team (Late st Contact Info) Description 08/02/2014 Orders Only External Location [address] [place] [phone] Provider, External Social History Tobacco Use Types [...] Associated Diagnosis Comments MAMMOGRAPHY OUTSIDE IMAGES UPLOAD 08/02/2014 4:56 PM EST documented in this encounter Results * Mammography Outside Images Upload (08/02/2014 4:56 PM EST) Anatomical Region Laterality Modality Mammography 08/02/2014 4:56 PM EST us External Provider IMG BI PROCEDURES Final Result documented in this encounter Visit Diagnoses Not on filedocumented in this encounter Additional Health Concerns Infection Onset Date Last Indicated Resolved Time COVID-19 Rule-Out 08/27/2022 08/27/2022 08/27/2022 7:57 PM EST Influenza 08/27/2022 08/27/2022 09/24/2022 5:23 AM EST documented as of this encounter Care Teams Reproducer Relationship Specialty Start Date End Date Stefany Davila MD [address] [place] [phone] PCP - General 02/09/21 Cindy Terry RELAY SHOP SUPERVISOR VALUE-BASED TRANSFORMATION PROGRAM Licensed Practical Nurse 03/10/23 03/13/23 Milly Espinoza RELAY SHOP SUPERVISOR VALUE-BASED [place] [address] TCM Nurse 08/05/23 08/07/23 Milly Espinoza RELAY SHOP SUPERVISOR VALUE-BASED [place] [address] TCM Nurse 11/13/23 12/15/23 Aletha Schafer TCM Nurse 11/13/23 11/26/23 Chana Healy RELAY SHOP SUPERVISOR VALUE-BASED TRANSFORMATION PROGRAM TCM Nurse 12/28/24 12/28/24 documented as of this encounter
--- OUTSIDE RECORDS SUMMARY | 2025-05-25 11:11 | XMS_ITS | Encounter Summary ---
Author Organization Healthcare Address [address] [place] [address] Care Team Providers Care Sleeve Setter Name Role Phone Stefany Davila MD Primary Care Provider [phone] Chana Healy SENIOR RISK MANAGER Unavailable Unavaila ble Encounter Details Date Type Department Care Team (Late st Contact Info) Description 04/20/2024 Outside Procedure External Location [address] [place] [address] Stefany Davila MD [address] [place] [address] Social History Tobacco Use Types Packs/Day Years Used Date Smoking Tobacco: Former Cigarettes 0.5 20 1 7 - 2017 Smokeless Tobacco: Never Humiliation, Afraid, Rape, and Kick questionnair e Answer Date Recorded Within the last year, have y ou been afraid of your partner or ex-partner? No 11/13/2023 Within the last year, have y ou been humiliated or emotionally abused in other ways by your partner or ex-partner? No Within the last year, have y ou been kicked, hit, slapped, or otherwise physically hurt by your partner or ex-partner? No 11/13/2023 Within the last year, have y ou been raped or forced to have any kind of sexual activity by your partner or ex-partner? No 11/13/2023 Social Connection and Isolation Panel Answer Date Recorded In a typical week, how many times do you talk on the phone with family, friends, or neighbors? More than three times a week 11/13/2023 How often do you get togethe r with friends or relatives? Twice a week 11/13/2023 How often do you attend chur ch or scientologist services? More than 4 times per year 11/13/2023 Do you belong to any clubs o r organizations such as rastafari groups, unions, fraternal or athletic groups, or [...] Date Recorded Patient Health Questionnaire-2 Score 0 [facility] - Occupational Stress Questionnaire Answer [...] you didn't have money to get more. Sometimes true PRAPARE - Transportation Answer Date Re corded In the past 12 months, has l ack of transportation kept you from medical appointments or from getting medications? No 10/30 In the past 12 months, has l ack of transportation kept you from meetings, work, or from getting things needed for daily living? No 11/13/2023 Housing Stability Vital Sign Answer Natalio e Recorded In the last 12 months, was t here a time when you were not able to pay the mortgage or rent on time? No 11/13/2023 In the last 12 months, how many places have you lived? 1 11/13/2023 In the last 12 months, was t here a time when you did not have a steady place to sleep or slept in a skilled nursing (including now)? No 11/13/2023 PHQ-9 Answer Date Recorded Patient Health Questionnaire-9 Score 20 07/10/2023 Safety and Environment Answer Date Chilo rded [...] shut off services in your home? Yes 11/13/2023 PHQ-2A Answer Date Recorded Patient Health Questionnaire-2 [...] Name Priority Date/Time Associated Diagnosis Comments CT ABDOMEN PELVIS W AND WO IV CONTRAST 04/20/2024 11:59 AM EDT documented in this encounter Results * CT Abdomen Pelvis w and wo IV Contrast (04/20/2024 11:59 AM EDT) Anatomical Region Laterality Modality Abdomen, Pelvis Computed Tomogra phy 04/20/2024 11:5 9 AM EDT Narrative 04/20/2024 2:40 PM EDT [facility] [address] [place] [address] Name: NOEMI PERAZA Exam Date: 04/20/2024 : 1950 Age 73 years Gender: F Physician: Stefany Davila Facility: [facility] Facility HSV: Outpatient Exam: CT ABD PEL W/W/O PROCEDURE:CT ABDOMEN PELVIS WITHOUT THEN WITH IV CONTRAST. HISTORY:Patient is a 73 year old Female with LLQ pain COMPARISON:None available TECHNIQUE: Multislice CT imaging of the abdomen and pelvis was performed after the IV administration of contrast. Axial, coronal and sagittal reformatted images were submitted. All CT examinations are performed using 1 or more of the following diagnosis reduction techniques: Automated exposure control, adjustment of the mA and/or KV according to patient's size, or use of iterative reconstruction techniques. FINDINGS: Indeterminate semisolid nodule RIGHT lower lobe measures 5 mm in diameter, likely infectious or inflammatory etiology. Follow-up according to Fleischner Society guidelines recommended. The heart is normal in size. Nodular cirrhotic morphology of the liver is present. Patient is status post cholecystectomy. Calcified granuloma in the spleen noted. The pancreas demonstrates no acute pathology. The adrenal glands and RIGHT kidney demonstrate no acute pathology. Nonobstructing 3 mm LEFT renal stone noted. Mild LEFT renal scarring and atrophy noted. There is no free air or lymph node enlargement.Abdominal aorta is not aneurysmal. Mild atherosclerosis of the abdominal aorta is present. There is no bowel wall thickening or obstruction. Moderate amount of stool is present throughout the colon, suggestive of constipation.There is no free fluid. The urinary bladder is unremarkable. The uterus is absent. Scattered calcified phleboliths are noted within the pelvis. There is no evidence of acute appendicitis. No suspicious lytic or blastic osseous lesions are identified. Senescent changes of the lumbar spine are present. IMPRESSION: 1.Moderate amount of stool throughout the colon, suggestive of constipation. 2.Nodular cirrhotic morphology of the liver. 3.Nonobstructing LEFT renal stone. 4.Indeterminate semisolid nodule of the RIGHT lower lobe measures 5 mm in diameter, likely infectious or inflammatory etiology. Thank you for allowing us to assist in the care of this patient. Electronically signed by:Vidal Heller MD04/20/2024 02:36 PM EDT RP Dictated By: Vidal Heller Transcribed By: Legally authenticated by CRISTIAN DIEGO 2024-04-20 13:48:10 Transcribed On: 04/20/2024 1:48 PM Electronically signed by: Vidal Heller 04/20/2024 Thank you for referring NOEMI PERAZA to [facility]. Legally authenticated by CRISTIAN DIEGO 2024-04-20 13:48:10 Procedure Note Provider, [facility] - 04/20/2024 [id number] [place] [address] Name: NOEMI PERAZA Exam Date: 04/20/2024 : 1950 Age 73 years Gender: F Physician: Stefany Davila Facility: [facility] Facility HSV: Outpatient Exam: CT ABD PEL W/W/O PROCEDURE:CT ABDOMEN PELVIS WITHOUT THEN WITH IV CONTRAST. HISTORY:Patient is a 73 year old Female with LLQ pain COMPARISON:None available TECHNIQUE: Multislice CT imaging of the abdomen and pelvis was performedafter the IV administration of contrast. Axial, coronal and sagittalreformatted images were submitted. All CT examinations are performed using 1 or more of the followingdiagnosis reduction techniques: Automated exposure control, adjustment of the mAand/or KV according to patient's size, or use of iterative reconstructiontechniques. FINDINGS: Indeterminate semisolid nodule RIGHT lower lobe measures 5 mm indiameter, likely infectious or inflammatory etiology. Follow-up according toFleischner Society guidelines recommended. The heart is normal in size. Nodular cirrhotic morphology of the liver is present. Patient is statuspost cholecystectomy. Calcified granuloma in the spleen noted. The pancreas demonstrates no acute pathology. The adrenal glands and RIGHT kidney demonstrate no acute pathology. Nonobstructing 3 mm LEFT renal stone noted. Mild LEFT renal scarring and atrophy noted. There is no free air or lymph node enlargement.Abdominal aorta is not aneurysmal. Mild atherosclerosis of the abdominal aorta is present. There is no bowel wall thickening or obstruction. Moderate amount of stoolis present throughout the colon, suggestive of constipation.There is nofree fluid. The urinary bladder is unremarkable. The uterus is absent.Scattered calcified phleboliths are noted within the pelvis. There is no evidenceof acute appendicitis. No suspicious lytic or blastic osseous lesions are identified. Senescent changes of the lumbar spine are present. IMPRESSION: 1.Moderate amount of stool throughout the colon, suggestive ofconstipation. 2.Nodular cirrhotic morphology of the liver. 3.Nonobstructing LEFT renal stone. 4.Indeterminate semisolid nodule of the RIGHT lower lobe measures 5 mmin diameter, likely infectious or inflammatory etiology. Thank you for allowing us to assist in the care of this patient. Electronically signed by:Vidal Heller MD04/20/2024 02:36 PM EDT Dictated By: Vidal Heller Transcribed By: Legally authenticated by CRISTIAN DIEGO 2024-04-20 13:48:10 Transcribed On: 04/20/2024 1:48 PM Electronically signed by: Vidal Heller 04/20/2024 Thank you for referring NOEMI PERAZA to [facility]. Legally authenticated by CRISTIAN DIEGO 2024-04-20 13:48:10 us Stefany Davila MD IMG CT PROCEDURES Final Resul t documented in this encounter Visit Diagnoses Not on filedocumented in this encounter Additional Health Concerns Assessment Noted Time PHQ-9 Depression Total Score: 20 023 1:44 PM EDT A fall risk assessment has been complete d for the patient 04/19/2024 1:50 PM EDT A Body Mass Index follow-up plan has been documented for the patient 04/19/2024 2:51 PM EDT documented as of this encounter Care Teams Sleeve Setter Relationship Specialty Start Date End Date Stefany Davila MD [address] [place] [phone] PCP - General 02/09/21 Chana Healy LPN VALUE-BASED TRANSFORMATION PROGRAM TCM Nurse 12/28/24 12/28/24 documented as of this encounter
--- OUTSIDE RECORDS SUMMARY | 2025-05-25 11:11 | XMS_ITS | Encounter Summary ---
Author Organization Healthcare Address [address] [place] [address] Care Team Providers Care Flight Data Technician Name Role Phone Stefany Davila MD Primary Care Provider [phone] Cindy Terry SECTION CREWS ACTIVITIES CLERK Unavailable Unavailab Milly Fish SECTION CREWS ACTIVITIES CLERK Unavailable Unavail able Milly Espinoza SECTION CREWS ACTIVITIES CLERK Unavailable Unavail able Aletha Schafer Unavailable Unavailabl Chana Cleary SECTION CREWS ACTIVITIES CLERK Unavailable Unavaila ble Encounter Details Date Type Department Care Team (Late st Contact Info) Description 07/08/2012 Orders Only External Location [address] [place] [address] Provider, External Social History Tobacco Use Types [...] Associated Diagnosis Comments MAMMOGRAPHY OUTSIDE IMAGES UPLOAD 07/08/2012 10:46 AM EDT documented in this encounter Results * Mammography Outside Images Upload (07/08/2012 10:46 AM EDT) Anatomical Region Laterality Modality Mammography 07/08/2012 10:4 6 AM EDT us External Provider IMG BI PROCEDURES Final Result documented in this encounter Visit Diagnoses Not on filedocumented in this encounter Additional Health Concerns Infection Onset Date Last Indicated Resolved Time COVID-19 Rule-Out 08/27/2022 08/27/2022 08/27/2022 7:57 PM EST Influenza 08/27/2022 08/27/2022 09/24/2022 5:23 AM EST documented as of this encounter Care Teams Flight Data Technician Relationship Specialty Start Date End Date Stefany Davila MD [address] [place] [phone] PCP - General 02/09/21 Cindy Terry SECTION CREWS ACTIVITIES CLERK VALUE-BASED TRANSFORMATION PROGRAM Licensed Practical Nurse 03/10/23 03/13/23 Milly Espinoza SECTION CREWS ACTIVITIES CLERK VALUE-[place]ED [place] [address] TCM Nurse 08/05/23 08/07/23 Milly Espinoza SECTION CREWS ACTIVITIES CLERK VALUE-[place]ED [place] [address] TCM Nurse 11/13/23 12/15/23 Aletha Schafer TCM Nurse 11/13/23 11/26/23 Chana Healy SECTION CREWS ACTIVITIES CLERK VALUE-BASED TRANSFORMATION PROGRAM TCM Nurse 12/28/24 12/28/24 documented as of this encounter
[2025-05-25 12:02] LABS: Hematocrit 37.6 % (37.0-47.0); Hemoglobin 13.1 g/dL (12.2-16.2); Immature Granulocytes % 0.2 %; Mean Corpuscular HGB Conc 34.8 g/dL (31.8-35.4); Mean Corpuscular Hemoglobin 32.3 pg (27.0-31.2); Mean Corpuscular Volume 92.8 fl (81-99); Nucleated Red Blood Cells % 0 %; Platelet Count 119 K/mm3 (142-424); Red Blood Count 4.05 M/mm3 (4.20-5.40); Red Cell Distribution Width-SD 48.8 fL; White Blood Count 4.7 K/mm3 (4.8-10.8)
[2025-05-25 12:08] LABS: Activated Partial Thrombo Time 28.6 seconds (22.8-30.6); INR 1.06 (0.9-1.1); Prothrombin Time 11.7 seconds (10.1-12.5)
[2025-05-25 13:50] LABS: Chloride 114 mmol/L (98-107)
[2025-05-25 13:51] LABS: Albumin Level 3.7 g/dl (3.5-5.0); Potassium 4.2 mmoL/L (3.5-5.1); Sodium 144 mmol/L (136-145)
[2025-05-25 13:53] LABS: Alanine Aminotransferase 26 U/L (12-78); Anion Gap 8.2 mEq/L (5-15); Aspartate Amino Transferase 41 U/L (14-36); Blood Urea Nitrogen 18 mg/dl (7-17); Carbon Dioxide 26 mmol/L (22.0-30.0); Creatinine,Serum 1.00 mg/dl (0.52-1.04); Estimated Glomerular Filt Rate 54 ml/min (>60); GFR (African American) 65 ML/MIN (>60)
[2025-05-25 13:54] LABS: Albumin/Globulin Ratio 1.3 (1.1-1.8); Alkaline Phosphatase 134 U/L (38-126); Bilirubin,Total 0.8 mg/dl (0.2-1.3); Calcium 8.9 mg/dl (8.4-10.2); Globulin 2.9 g/dL (1.3-3.2); Glucose 115 mg/dl (74-100); Total Protein,Serum 6.6 g/dl (6.3-8.2)
== END 2025-05-25 23:59 | disposition home or self-care (01) ==
LOC: RAD 11:02
PROVIDERS: PCP Family Medicine; Visit Provider Nurse Practitioner
DX: K74.60 Unspecified cirrhosis of liver (principal)
CPT/HCPCS: 36415; 76700; 80053; 82105; 85025; 85610; 85730